=== PATIENT | male | born 1985 | race Two or more races ===

== ENCOUNTER 2025-04-06 14:20 | Inpatient (IN) | payer MEDICAID, SELFPAY ==
[2025-04-06] VITALS (9 sets, daily range): BP systolic 143–188; BP diastolic 97–118; PULSE 90–117; RESP 18–23; TEMP 36.7–37.2; O2SAT 89–99; BMI 29.0
--- NOTE | 2025-04-06 14:27 | XR_ITS ---
Examination: CT abdomen and pelvis without contrast. Coronal 3-D reconstructions. Sagittal 2-D reconstructions. Date and time of exam: 04/06/2025 at 2:53 p.m. CTDI: vol (mGy): 7.87 DLP: (mGycm): 416 INDICATION: Right-sided flank pain radiating down his lower back with nausea and vomiting for 2 days Technique: Axial images of the abdomen have been obtained, 3 mm slice thickness Intravenous contrast material has not been administered. Low dose protocols were performed. One or more of the following dose reduction techniques were used; automated exposure control, adjustment of the mA and/or KV according to patient size, use of iterative reconstruction technique. Findings: The lower lungs are clear. There is major very extensive fatty infiltration noted throughout the entire liver. Otherwise the liver appears unremarkable, the gallbladder and pancreas and spleen appear normal. Both adrenal glands appear all right, no abnormalities are seen in either right or left kidney. There are no calculi there is no evidence of obstructive uropathy on either side. The para-aortic region appears normal. The appendix is seen and appears normal small bowel loops appear all right. In the colon there is moderate diverticulosis in the proximal third of the sigmoid colon. There is a large amount of fecal material noted throughout the entire colon. There is calcification of the vas deferens on both sides IMPRESSION: 1. No abnormalities are seen involving either right or left kidney or ureter. 2 there is major, very extensive fatty infiltration throughout the entire liver. 3 there is moderate diverticulosis in the proximal third of the sigmoid colon 4. There is calcification of the vas deferens on both sides, this has a high correlation with the presence of diabetes.
[2025-04-06 14:54] LABS: Basophils # (Auto) 0.0 Thou/mm3 (0.0-0.2); Basophils % (Auto) 1 % (0-2.5); Eosinophils # (Auto) 0.1 Thou/mm3 (0.0-0.5); Eosinophils % (Auto) 4 % (0-10); Hematocrit 39.4 % (41.0-53.0); Hemoglobin 14.0 g/dL (13.5-16.0); Immature Granulocytes Auto 0.03 Thou/mm3 (0.00-0.00); Lymphocytes # (Auto) 0.8 Thou/mm3 (1.0-4.8); Lymphocytes % (Auto) 22 % (10-50); Mean Corpuscular HGB Conc 35.5 g/dl (31.0-37.0); Mean Corpuscular Hemoglobin 30.6 pg (25.0-35.0); Mean Corpuscular Volume 86 fL (80-100); Monocytes # (Auto) 0.2 Thou/mm3 (0.0-0.8); Monocytes % (Auto) 6 % (0-12); Neutrophils # (Auto) 2.4 Thou/mm3 (1.8-7.7); Neutrophils % (Auto) 66 % (37-80); Nucleated Red Blood Cell # 0.00 Thou/mm3 (0.00-0.00); Nucleated Red Blood Cell % 0 /100 WBC (0); Platelet Count 164 Thou/mm3 (140-440); RDW Standard Deviation 39.9 fL (35.1-43.9); Red Blood Count 4.58 Miln/mm3 (4.50-5.90); White Blood Count 3.6 Thou/mm3 (3.8-10.6)
[2025-04-06 15:13] LABS: INR 1.0 (0.9-1.3); Prothrombin Time 10.9 Seconds (9.0-12.2)
--- NOTE | 2025-04-06 15:24 | EKG_ITS ---
[facility] Test Date: 2025-04-06 Pat Name: KAVIN FUNEZ Department: Room: - Gender: Male [employer]: : 1985 Requested By: Gonzales Booker Order Number: [id number] Reading MD: Gonzales Booker Measurements Intervals [place] Rate: 106 P: 39 FL: 144 QRS: 22 QRSD: 98 T: -7 QT: 329 QTc: 438 Interpretive Statements SINUS TACHYCARDIA No previous ECG available for comparison /store/S0/[id number].pdf
[2025-04-06] MEDS: THIAMINE 100 MG TABLET PO (15:30)
[2025-04-06] MEDS: FOLIC ACID 1 MG TABLET PO (15:30)
[2025-04-06 15:31] LABS: Alanine Aminotransferase 88 U/L (10-49); Albumin, Serum 4.9 gm/dL (3.5-5.0); Albumin/Globulin Ratio 1.5 (1.2-2.2); Alcohol, Blood Medical 132.0 mg/dL (0-10.0); Alkaline Phosphatase 95 U/L (46-116); Anion Gap 17 (7-16); Aspartate Amino Transferase 172 U/L (0-34); BUN/Creatinine Ratio 6 Ratio (12-20); Bilirubin,Total 0.5 mg/dL (0.3-1.2); Blood Urea Nitrogen 5 mg/dL (9-23); Calcium 9.2 mg/dL (8.3-10.6); Calcium (Corrected) 9.2 mg/dL (8.5-10.1); Carbon Dioxide 28.5 mMol/L (20.0-31.0); Chloride 96 mMol/L (98-107); Creatinine (Component) 0.8 mg/dL (0.6-1.3); Estimated Creatinine Clearance 126.9 mL/min (>60); Globulin 3.2 gm/dL (2.3-3.5); Glucose 188 mg/dL (74-106); Lipase 59 U/L (12-53); Magnesium 1.1 mg/dL (1.6-2.6); Osmolality,Calculated 283 (275-295); Potassium 3.5 mMol/L (3.4-5.1); Sodium 141 mMol/L (136-145); Total Protein 8.1 gm/dL (5.7-8.2); eGFR > 60 See Note
[2025-04-06] MEDS: MORPHINE SULF INJ 4 MG/ML VIAL IVP (15:31)
[2025-04-06] MEDS: SODIUM CHLORIDE 0.9% 1000 ML 1,000 ML 999 ML IV (15:31)
[2025-04-06] MEDS: LORazepam 2 MG/ML VIAL IVP ×2 (15:32→18:57)
[2025-04-06] MEDS: ONDANSETRON INJ 2 MG/ML INJ 2 ML 4 MG IVP (15:32)
[2025-04-06 15:45] LABS: Troponin I 0.046 ng/mL (0.0-0.045)
[2025-04-06 15:58] LABS: Collection Type, Urine Clean Catch
[2025-04-06 16:05] LABS: Bilirubin,Urine Negative (Negative); Blood,Urine 2+ (Negative); Clarity,Urine Clear (Clear/Hazy); Color,Urine Yellow (Lt Yel-Yel); Glucose, Urine 2+ (Negative); Hyaline Casts,Urine < 1 /hpf (0-1); Ketones,Urine 1+ (Negative); Leukocyte Esterase,Urine Negative (Negative); Nitrite,Urine Negative (Negative); PH,Urine 8.0 (5.0-7.0); Protein,Urine 2+ (Neg - Trace); RBC,Urine 17 /hpf (0-3); Specific Gravity,Urine 1.023 (1.001-1.035); Squamous Epithelial Cell,Urine < 1 /hpf (0-5); Urobilinogen,Urine Negative mg/dL (0.0-1.0); WBC,Urine 1 /hpf (0-5)
[2025-04-06 16:10] LABS: Sperm,Urine Present
--- NOTE | 2025-04-06 17:13 | PD.EDABDPN ---
ED Abdominal Pain RME/HPI General Chief Complaint: Chest Pain Stated complaint: ABD PAIN Time seen by provider: 04/06/25 14:26 Arrival date/time: 04/06/25 14:20 Limitations: no limitations RME / HPI RME / HPI narrative: 39 year old male with history of alcoholism, alcohol withdrawal, hypertension, diabetes presents to the ED BIBA from clinic for evaluation of feeling unwell today. Patient states he drinks 1 pint of Vodka a day (sometimes more) and states 5-6 days ago drank 2 pints of Vodka and has not had anything to drink since. Today went to the clinic with complaint of feeling bad, pain all over . No other recreational drug use, no known past medical history of liver cirrhosis. Family history of diabetes and hypertension. Related Data Home Medications ?Medication ?Instructions ?Recorded ?Confirmed lisinopril 40 mg tablet 40 mg PO QDAY 04/07/25 04/07/25 metformin 850 mg tablet 850 mg PO QDAY 04/07/25 04/07/25 omeprazole 40 mg capsule,delayed 40 mg PO QDAY 04/07/25 04/07/25 release Previous Rx's ?Medication ?Instructions ?Recorded gabapentin 100 mg capsule 100 mg PO QDAY 4 days #4 caps 04/14/25 gabapentin 300 mg capsule 300 mg PO BID 4 days #8 caps 04/14/25 gabapentin 300 mg capsule 300 mg PO QDAY 4 days #4 caps 04/14/25 gabapentin 300 mg capsule 300 mg PO TID 4 days #12 caps 04/14/25 magnesium 200 mg tablet 200 mg PO QDAY 2 weeks #14 tabs 04/14/25 melatonin 3 mg tablet 6 mg (2 x 3 mg) PO HS 14 days #28 04/14/25 tabs sennosides 8.6 mg capsule (senna) 8.6 mg PO QDAY 1 month #30 caps 04/14/25 thiamine mononitrate (vit B1) 100 100 mg PO QDAY 30 days #30 tabs 04/14/25 mg tablet Allergies Allergy/AdvReac Type Severity Reaction Status Date / Time No Known Allergies Allergy Verified 04/06/25 14:46 Review of Systems Review of Systems Systems Reviewed: All systems reviewed, normal except as documented Past Medical History Past Medical History CARDIAC: Positive Hypertension GASTROINTESTINAL: Positive Gastroesophageal Reflux Disease ENDOCRINE: Positive Diabetes Mellitus Type 2 PSYCHO/SOCIAL: Positive Depression and Anxiety Social History SMOKING STATUS: Never smoker ED Exam General Limitations: Present no limitations General appearance: Present alert (oriented x3) and other (Slight tremor, fluent speech, pale, appears weak ) Head Head exam: Present atraumatic Eye Eye exam: Present normal appearance, PERRL and EOMI ENT ENT exam: Present normal exam, normal oropharynx and mucous membranes moist Neck Neck exam: Present normal inspection, full ROM and trachea midline Chest Chest inspection: Present normal inspection and symmetric chest wall rise Respiratory Respiratory exam: Present normal lung sounds bilaterally Cardiovascular Cardiovascular exam: Present regular rate, normal rhythm and normal heart sounds Abdominal Exam Abdominal exam: Present soft, tenderness (mild tenderness around umbilicus ) and normal bowel sounds; Absent guarding, rebound or rigidity Extremities Exam Extremities exam: Present normal inspection and full ROM Back Exam Back exam: Present normal inspection and full ROM Neurological Exam Neurological exam: Present alert, oriented X3, CN II-XII intact and other (Slight tremor noted) Psychiatric Psychiatric exam: Present normal affect and normal mood Skin Skin exam: Present warm, dry, intact and pallor Course Quality Measures none Orders Category Date Time Status Admit to Inpatient Status Routine Admission 04/06/25 21:11 Active Patient Condition Routine Admission 04/06/25 21:11 Ordered Bedrest NOW Care 04/06/25 21:14 Completed Bedside Blood Glucose ACHS Care 04/06/25 21:09 Completed Blood glucose [Bedside Blood Glucose] NOW Care 04/06/25 21:09 Completed Senior Network Architect Q4H START 00 Care 04/06/25 14:27 Completed Continuous Pulse Oximetry STAT Care 04/06/25 14:27 Completed EKG (ED ONLY) *Do not use* NOW Care 04/06/25 15:24 Completed Insert IV STAT Care 04/06/25 14:27 Completed NPO STAT Care 04/06/25 14:27 Completed Notify provider NEEDED Care 04/06/25 21:11 Completed Diet Regular Diet 04/07/[address] abdomen pelvis wo con Stat Exams 04/06/25 14:27 Completed EKG (ED Only) Stat Exams 04/06/25 15:24 Draft US gall bladder Stat Exams 04/06/25 18:40 Completed Alcohol, Blood Medical Stat Lab 04/06/25 14:40 Completed Ammonia Stat Lab 04/06/25 19:35 Completed Amylase Stat Lab 04/06/25 17:55 Completed BNP [B-Type Natriuretic Peptide] Stat Lab 04/06/25 17:55 Completed Beta Hydroxybutyrate Stat Lab 04/06/25 17:55 Completed Bilirubin,Direct Stat Lab 04/06/25 17:55 Completed CBC Stat Lab 04/06/25 14:40 Completed CK [Creatine Kinase] Stat Lab 04/06/25 17:55 Completed Comprehensive Metabolic Panel Stat Lab 04/06/25 14:40 Completed Drug Screen,Urine Stat Lab 04/06/25 15:50 Completed Hemoglobin A1C [Glycohemoglobin w (eAG)] Stat Lab 04/06/25 17:55 Completed Lactate (Lactic Acid) Stat Lab 04/06/25 19:35 Completed Lipase Stat Lab 04/06/25 14:40 Completed Magnesium Stat Lab 04/06/25 14:40 Completed Magnesium Stat Lab 04/06/25 17:55 Completed PTT [Partial Thromboplastin Time] Stat Lab 04/06/25 17:55 Completed Phosphorous Stat Lab 04/06/25 19:35 Completed Prothrombin Time with INR Stat Lab 04/06/25 14:40 Completed TSH [Thyroid Stimulating Hormone] Stat Lab 04/06/25 17:55 Completed Troponin I Stat Lab 04/06/25 14:40 Completed Troponin I Stat Lab 04/06/25 17:55 Completed Urinalysis Stat Lab 04/06/25 15:50 Completed VBG [Venous Blood Gas] Stat Lab 04/06/25 19:35 Completed Dextrose 50% Syr [D50w Syringe Abboject] Med 04/06/25 21:09 Discontinued 25 ml IV Q15MIN PRN Dextrose 50% Syr [D50w Syringe Abboject] Med 04/06/25 21:09 Discontinued 50 ml IV Q15MIN PRN Folic Acid Med 04/07/25 09:00 Discontinued 1 mg PO QDAY Folic Acid Med 04/06/25 14:34 Discontinued 1 mg PO X1 ONE Glucagon Inj Med 04/06/25 21:09 Discontinued 1 mg IM Q15MIN PRN INSULIN LISPRO (AdmeLOG) [HumaLOG] Med 04/07/25 07:30 Discontinued See Protocol SC AC LORazepam [Ativan Inj] Med 04/06/25 14:36 Discontinued 2 mg IVP X1 ONE LORazepam [Ativan Inj] Med 04/06/25 18:49 Discontinued 2 mg IVP X1 ONE Lisinopril [Prinivil] Med 04/06/25 17:58 Discontinued 20 mg PO X1 ONE Magnesium Sulfate 4 GM Ivpb [Magnesium Sulfate Ivpb] Med 04/06/25 18:48 Discontinued 4 gm in 50 ml IV X1 Metoprolol Tartrate Inj [Lopressor Inj] Med 04/06/25 18:32 Discontinued 2.5 mg IVP X1 ONE Metoprolol Tartrate [Lopressor] Med 04/06/25 18:32 Discontinued 50 mg PO X1 ONE Milk Of Magnesia Susp [Mom Susp] Med 04/06/25 21:16 Discontinued 30 ml PO X1 ONE Morphine* Inj Med 04/06/25 18:32 Discontinued 4 mg IV X1 ONE Morphine* Inj Med 04/06/25 14:27 Discontinued 4 mg IVP X1 ONE Ondansetron Inj [Zofran Inj] Med 04/06/25 14:28 Discontinued 4 mg IVP X1 ONE Ringers Lactated 1000 ml [Lactated Ringers] 1,000 ml Med 04/06/25 18:37 Discontinued IV 1,000 mls/hr Ringers Lactated 1000 ml [Lactated Ringers] 1,000 ml Med 04/06/25 21:15 Discontinued IV 75 mls/hr Sodium Chloride 0.9% 1000 ml [Ns] 1,000 ml Med 04/06/25 14:27 Discontinued IV 999 mls/hr Thiamine Inj [Vitamin B-1 Inj] Med 04/06/25 21:08 Discontinued 500 mg IVP X1 ONE Thiamine [Vitamin B-1] Med 04/07/25 09:00 Discontinued 100 mg PO QDAY Thiamine [Vitamin B-1] Med 04/06/25 14:34 Discontinued 100 mg PO X1 ONE Code Status Routine Oth 04/06/25 21:10 Completed Oxygen Delivery PRN RT 04/06/25 21:15 Completed Vital Signs Vital signs: Vital Signs Temperature 98.5 F 04/06/25 15:06 Pulse Rate 108 H 04/06/25 15:06 Respiratory Rate 19 04/06/25 15:06 Blood Pressure 188/118 H 04/06/25 15:06 Pulse Oximetry (%) 99 04/06/25 15:06 Oxygen Delivery Method Room Air 04/06/25 15:06 Pulse ox is 99% on room air which is adequate. Abdominal Pain MDM MDM Narrative MDM Narrative:: Mary Baca am scribing for and in the presence of Dr. Nassar. 1800p: Care signed out to Dr. Lund pending delta trop and final disposition. Patient data External records reviewed:: [facility] previous records and EMS form Clinical information provided by:: patient and EMS Social determinants that could affect healthcare access:: none Patient has the following chronic illnesses:: alcoholism, alcohol withdrawal, hypertension, diabetes How is presenting disease/condition affected by chronic disease/condition?: exacerbated by Evaluation data The following diagnostics were reviewed and interpreted by me:: lab results, radiology exam(s) and EKG tracing(s) (EKG @ 15:52h, interpreted by me, sinus tachycardia, rate 106, no STEMI. ) Lab and/or radiology exams considered but not ordered:: None Interpretation Summary: Ordering Physician: Gonzales Nassar MD Date of Service: 04/06/25 Procedure(s): CT abdomen pelvis wo con Accession Number(s): [id number] cc: Gonzales Nassar MD; Donta Samuel MD~ Examination: CT abdomen and pelvis without contrast. Coronal 3-D reconstructions. Sagittal 2-D reconstructions. Date and time of exam: 04/06/2025 at 2:53 p.m. CTDI: vol (mGy): 7.87 DLP: (mGycm): 416 INDICATION: Right-sided flank pain radiating down his lower back with nausea and vomiting for 2 days Technique: Axial images of the abdomen have been obtained, 3 mm slice thickness Intravenous contrast material has not been administered. Low dose protocols were performed. One or more of the following dose reduction techniques were used; automated exposure control, adjustment of the mA and/or KV according to patient size, use of iterative reconstruction technique. Findings: The lower lungs are clear. There is major very extensive fatty infiltration noted throughout the entire liver. Otherwise the liver appears unremarkable, the gallbladder and pancreas and spleen appear normal. Both adrenal glands appear all right, no abnormalities are seen in either right or left kidney. There are no calculi there is no evidence of obstructive uropathy on either side. The para-aortic region appears normal. The appendix is seen and appears normal small bowel loops appear all right. In the colon there is moderate diverticulosis in the proximal third of the sigmoid colon. There is a large amount of fecal material noted throughout the entire colon. There is calcification of the vas deferens on both sides IMPRESSION: 1. No abnormalities are seen involving either right or left kidney or ureter. 2 there is major, very extensive fatty infiltration throughout the entire liver. 3 there is moderate diverticulosis in the proximal third of the sigmoid colon 4. There is calcification of the vas deferens on both sides, this has a high correlation with the presence of diabetes. Dictated By: Donta Samuel MD Signed By: <Electronically signed by Donta Samuel MD in [place]> 04/06/25 1554 Medications / Prescriptions Medications or Prescriptions considered but not ordered:: None Medication administrations:: Medication Administration History Discontinued Medications Acetaminophen (Acetaminophen 325 Mg Tablet) 650 mg PO Q6HR PRN PRN Reason: Fever > 100.4 or pain Stop: 05/07/25 19:43 Last Admin: 04/11/25 09:02 Dose: 650 mg Documented By: Admin: 04/08/25 19:04 Dose: 650 mg Documented By: Admin: 04/07/25 19:59 Dose: 650 mg Documented By: NATALIE Acetaminophen (Acetaminophen 325 Mg Tablet) 650 mg PO X1 ONE Stop: 04/08/25 03:20 Last Admin: 04/08/25 03:33 Dose: 650 mg Documented By: NATALIE Acetaminophen (Acetaminophen 325 Mg Tablet) 650 mg PO Q6HR PRN PRN Reason: Fever > 100.4 or pain 1-3 Stop: 05/07/25 19:43 Chlordiazepoxide HCl (Chlordiazepoxide Hcl 25 Mg Capsule) 25 mg PO BID JIM Stop: 04/13/25 20:59 Last Admin: 04/09/25 08:10 Dose: 25 mg Documented By: Admin: 04/08/25 20:52 Dose: 25 mg Documented By: NATALIE Chlordiazepoxide HCl (Chlordiazepoxide Hcl 25 Mg Capsule) 25 mg PO TID JIM Stop: 04/14/25 13:59 Last Admin: 04/09/25 14:19 Dose: Not Given Documented By: WILL Non-Admin Reason: Discontinued Chlordiazepoxide HCl (Chlordiazepoxide Hcl 25 Mg Capsule) 25 mg PO BID JIM Stop: 04/14/25 14:14 Last Admin: 04/12/25 20:22 Dose: 25 mg Documented By: Admin: 04/12/25 09:10 Dose: 25 mg Documented By: Admin: 04/11/25 20:36 Dose: 25 mg Documented By: Admin: 04/11/25 08:57 Dose: 25 mg Documented By: Admin: 04/10/25 20:01 Dose: 25 mg Documented By: Admin: 04/10/25 08:57 Dose: 25 mg Documented By: Admin: 04/09/25 20:14 Dose: 25 mg Documented By: Admin: 04/09/25 14:20 Dose: 25 mg Documented By: WILL Chlordiazepoxide HCl (Chlordiazepoxide Hcl 25 Mg Capsule) 25 mg PO BID JIM Stop: 04/18/25 08:59 Dextrose (Dextrose 50%-Water Inj 50 Ml Syringe) 25 ml IV Q15MIN PRN PRN Reason: BG 50-70 responsive npo pt Stop: 05/06/25 21:08 Dextrose (Dextrose 50%-Water Inj 50 Ml Syringe) 50 ml IV Q15MIN PRN PRN Reason: BG <50 OR BG <70 & pt unresponsive Stop: 05/06/25 21:08 Diazepam (Diazepam Inj 5 Mg/Ml Vial 2 Ml) 10 mg IVP Q2HR PRN PRN Reason: CIWA SCORE Stop: 04/11/25 21:16 Diazepam (Diazepam Inj 5 Mg/Ml Vial 2 Ml) 10 mg IVP X1 PRN PRN Reason: Breakthrough Agitation Diazepam (Diazepam Inj 5 Mg/Ml Vial 2 Ml) 5 mg IVP X1 PRN PRN Reason: Breakthrough Agitation Last Admin: 04/11/25 15:57 Dose: 5 mg Documented By: LEO Diazepam (Diazepam Inj 5 Mg/Ml Vial 2 Ml) 5 mg IVP Q2HR PRN PRN Reason: CIWA SCORE 15-19 Stop: 04/11/25 21:16 Last Admin: 04/10/25 03:53 Dose: 5 mg Documented By: SHAWN Comments: CIWA score: 16 Admin: 04/08/25 20:10 Dose: 5 mg Documented By: NATALIE Diazepam (Diazepam Inj 5 Mg/Ml Vial 2 Ml) 5 mg IVP Q2HR PRN PRN Reason: CIWA SCORE 16-19 Stop: 04/11/25 21:16 Last Admin: 04/10/25 20:01 Dose: 5 mg Documented By: SHAWN Comments: ZENAIDAWA 16. Diazepam (Diazepam Inj 5 Mg/Ml Vial 2 Ml) 5 mg IVP X1 PRN PRN Reason: Breakthrough Agitation Diazepam (Diazepam Inj 5 Mg/Ml Vial 2 Ml) 2.5 mg IVP X1 PRN PRN Reason: Breakthrough Agitation Last Admin: 04/13/25 07:45 Dose: 2.5 mg Documented By: WILL Comments: Ok to give per MD TRISTON Moore Diphenhydramine HCl (Diphenhydramine Elix 25 Mg/10 Ml Udc) 12.5 mg PO X1 ONE Stop: 04/13/25 01:27 Last Admin: 04/13/25 01:44 Dose: 12.5 mg Documented By: NATALIE Enoxaparin Sodium (Enoxaparin Sod Inj 40 Mg/0.4 Ml Syringe) 40 mg SC QDAY COUNT INCLUDES THE [facility] Stop: 04/21/25 08:59 Last Admin: 04/14/25 09:37 Dose: 40 mg Documented By: Admin: 04/13/25 08:48 Dose: 40 mg Documented By: Admin: 04/12/25 09:11 Dose: 40 mg Documented By: Admin: 04/11/25 08:58 Dose: 40 mg Documented By: Admin: 04/10/25 08:56 Dose: 40 mg Documented By: Admin: 04/09/25 08:10 Dose: 40 mg Documented By: Admin: 04/08/25 08:26 Dose: 40 mg Documented By: Admin: 04/07/25 09:09 Dose: 40 mg Documented By: LEO Folic Acid (Folic Acid 1 Mg Tablet) 1 mg PO X1 ONE Stop: 04/06/25 14:35 Last Admin: 04/06/25 15:30 Dose: 1 mg Documented By: ARGENTINA Folic Acid (Folic Acid 1 Mg Tablet) 1 mg PO QDAY JIM Stop: 05/07/25 08:59 Last Admin: 04/13/25 08:49 Dose: 1 mg Documented By: Admin: 04/12/25 09:10 Dose: 1 mg Documented By: Admin: 04/11/25 08:57 Dose: 1 mg Documented By: Admin: 04/10/25 08:57 Dose: 1 mg Documented By: Admin: 04/09/25 08:10 Dose: 1 mg Documented By: Admin: 04/08/25 08:26 Dose: 1 mg Documented By: Admin: 04/07/25 09:09 Dose: 1 mg Documented By: LEO Folic Acid (Folic Acid Inj 1 Mg/0.2 Ml) 1 mg IVP QDAY COUNT INCLUDES THE [facility] Stop: 05/13/25 16:14 Last Admin: 04/14/25 10:37 Dose: 1 mg Documented By: Admin: 04/13/25 17:14 Dose: 1 mg Documented By: WILL Gabapentin (Gabapentin 300 Mg Capsule) 300 mg PO TID COUNT INCLUDES THE [facility] Stop: 05/13/25 08:44 Last Admin: 04/14/25 05:26 Dose: 300 mg Documented By: Admin: 04/13/25 21:49 Dose: 300 mg Documented By: Admin: 04/13/25 14:06 Dose: 300 mg Documented By: Admin: 04/13/25 08:48 Dose: 300 mg Documented By: WILL Glucagon (Glucagon Inj 1 Mg Vial) 1 mg IM Q15MIN PRN PRN Reason: BG <70, and no IV access Hydralazine HCl (Hydralazine Inj 20 Mg/Ml Vial) 10 mg IVP X1 ONE Stop: 04/07/25 23:04 Last Admin: 04/07/25 23:22 Dose: 10 mg Documented By: NATALIE Hydralazine HCl (Hydralazine Inj 20 Mg/Ml Vial) 10 mg IVP X1 ONE Stop: 04/13/25 23:58 Last Admin: 04/14/25 00:08 Dose: 10 mg Documented By: Hydromorphone HCl (Hydromorphone Inj 2 Mg/Ml Vial) 0.5 mg IVP Q4HR PRN PRN Reason: Breakthrough Pain 9-10 Stop: 04/14/25 11:45 Last Admin: 04/12/25 00:25 Dose: 0.5 mg Documented By: BLAINE Sodium Chloride (Ns) 1,000 mls @ 999 mls/hr IV .Q1H1M ONE Stop: 04/06/25 15:27 Last Infusion: 04/06/25 16:39 Dose: Infused Documented By: Admin: 04/06/25 15:31 Dose: 999 mls/hr Documented By: BD Lactated Ringer's (Lactated Ringers) 1,000 mls @ 1,000 mls/hr IV .Q1H ONE Stop: 04/06/25 19:36 Last Infusion: 04/06/25 20:26 Dose: Infused Documented By: Admin: 04/06/25 18:57 Dose: 1,000 mls/hr Documented By: BD Magnesium Sulfate (Magnesium Sulfate Ivpb) 4 gm in 50 mls @ 12.5 mls/hr IV X1 ONE Stop: 04/06/25 22:47 Last Infusion: 04/06/25 23:00 Dose: Infused Documented By: Admin: 04/06/25 18:56 Dose: 12.5 mls/hr Documented By: BD Lactated Ringer's (Lactated Ringers) 1,000 mls @ 75 mls/hr IV .[id number] JIM Stop: 05/06/25 21:14 Last Admin: 04/12/25 04:06 Dose: 75 mls/hr Documented By: Infusion: 04/11/25 22:17 Dose: Infused Documented By: Infusion: 04/11/25 18:03 Dose: 75 mls/hr Documented By: Admin: 04/11/25 08:57 Dose: 75 mls/hr Documented By: Infusion: 04/11/25 07:10 Dose: Infused Documented By: Admin: 04/10/25 17:50 Dose: 75 mls/hr Documented By: Infusion: 04/10/25 17:38 Dose: Infused Documented By: Admin: 04/10/25 04:18 Dose: 75 mls/hr Documented By: Infusion: 04/09/25 21:30 Dose: Infused Documented By: Admin: 04/09/25 08:10 Dose: 75 mls/hr Documented By: Infusion: 04/09/25 08:00 Dose: Infused Documented By: Admin: 04/08/25 18:40 Dose: 75 mls/hr Documented By: Infusion: 04/08/25 14:15 Dose: Infused Documented By: Admin: 04/08/25 00:55 Dose: 75 mls/hr Documented By: Infusion: 04/08/25 00:55 Dose: Infused Documented By: Admin: 04/07/25 11:35 Dose: 75 mls/hr Documented By: Infusion: 04/07/25 11:25 Dose: Infused Documented By: Admin: 04/06/25 22:05 Dose: 75 mls/hr Documented By: DELIA Magnesium Sulfate (Magnesium Sulfate Ivpb) 4 gm in 50 mls @ 12.5 mls/hr IV X1 ONE Stop: 04/07/25 01:18 Last Admin: 04/06/25 22:58 Dose: 12.5 mls/hr Documented By: DELIA Potassium Chloride (Kcl Ivpb) 10 meq in 100 mls @ 100 mls/hr IV Q1H JIM Stop: 04/07/25 11:18 Last Admin: 04/07/25 11:34 Dose: 100 mls/hr Documented By: Infusion: 04/07/25 10:57 Dose: Infused Documented By: Admin: 04/07/25 09:57 Dose: 100 mls/hr Documented By: LEO Magnesium Sulfate (Magnesium Sulfate Ivpb) 4 gm in 50 mls @ 12.5 mls/hr IV X1 ONE Stop: 04/08/25 13:19 Last Admin: 04/08/25 09:42 Dose: 12.5 mls/hr Documented By: LEO Magnesium Sulfate (Magnesium Sulfate Ivpb) 4 gm in 50 mls @ 12.5 mls/hr IV X1 ONE Stop: 04/09/25 12:59 Last Infusion: 04/09/25 12:15 Dose: Infused Documented By: Admin: 04/09/25 09:43 Dose: 12.5 mls/hr Documented By: WILL Magnesium Sulfate (Magnesium Sulfate Ivpb) 4 gm in 50 mls @ 12.5 mls/hr IV X1 ONE Stop: 04/09/25 16:29 Last Admin: 04/09/25 12:14 Dose: 12.5 mls/hr Documented By: WILL Magnesium Sulfate (Magnesium Sulfate Ivpb) 4 gm in 50 mls @ 12.5 mls/hr IV X1 ONE Stop: 04/11/25 13:00 Last Admin: 04/11/25 10:54 Dose: 12.5 mls/hr Documented By: LEO Magnesium Sulfate (Magnesium Sulfate Ivpb) 4 gm in 50 mls @ 12.5 mls/hr IV X1 ONE Stop: 04/12/25 15:16 Last Admin: 04/12/25 12:31 Dose: 12.5 mls/hr Documented By: LEO Magnesium Sulfate (Magnesium Sulfate Ivpb) 4 gm in 50 mls @ 12.5 mls/hr IV X1 ONE Stop: 04/12/25 19:19 Last Admin: 04/12/25 17:10 Dose: 12.5 mls/hr Documented By: LEO Thiamine HCl 500 mg/ Sodium (Chloride) 105 mls @ 210 mls/hr IV TID JIM Stop: 04/20/25 07:59 Last Admin: 04/14/25 05:26 Dose: 210 mls/hr Documented By: Infusion: 04/13/25 22:19 Dose: Infused Documented By: Admin: 04/13/25 21:49 Dose: 210 mls/hr Documented By: Infusion: 04/13/25 14:36 Dose: Infused Documented By: Admin: 04/13/25 14:06 Dose: 210 mls/hr Documented By: Infusion: 04/13/25 09:18 Dose: Infused Documented By: Admin: 04/13/25 08:48 Dose: 210 mls/hr Documented By: WILL Magnesium Sulfate (Magnesium Sulfate Ivpb) 4 gm in 50 mls @ 12.5 mls/hr IV X1 ONE Stop: 04/13/25 12:23 Last Admin: 04/13/25 08:47 Dose: 12.5 mls/hr Documented By: WILL Insulin Degludec (Insulin Degludec 5 Unit/0.05 Ml (Per 5 Units)) 8 unit SC QDAY COUNT INCLUDES THE [facility] Stop: 05/12/25 08:59 Last Admin: 04/14/25 09:38 Dose: 8 unit Documented By: WILL Co-signed By: PP Admin: 04/13/25 08:49 Dose: 8 unit Documented By: WILL Co-signed By: AMENA Admin: 04/12/25 09:11 Dose: 8 unit Documented By: LEO Co-signed By: ERIN Insulin Human Lispro (Insulin Lispro (Admelog) 1 Unit/0.01 Ml Unit) 0 unit SC AC COUNT INCLUDES THE [facility]; Protocol Stop: 05/07/25 07:29 Last Admin: 04/09/25 16:40 Dose: Not Given Documented By: WILL Non-Admin Reason: Per Protocol Admin: 04/09/25 11:12 Dose: Not Given Documented By: WILL Non-Admin Reason: Per Protocol Admin: 04/09/25 07:21 Dose: Not Given Documented By: WILL Non-Admin Reason: Per Protocol Admin: 04/08/25 18:06 Dose: Not Given Documented By: LEO Non-Admin Reason: Per Protocol Admin: 04/08/25 18:06 Dose: Not Given Documented By: LEO Non-Admin Reason: Per Protocol Admin: 04/08/25 18:06 Dose: Not Given Documented By: LH Non-Admin Reason: Per Protocol Admin: 04/07/25 18:03 Dose: Not Given Documented By: LH Non-Admin Reason: Per Protocol Admin: 04/07/25 14:43 Dose: Not Given Documented By: LH Non-Admin Reason: Per Protocol Admin: 04/07/25 08:03 Dose: Not Given Documented By: LH Non-Admin Reason: Per Protocol Insulin Human Lispro (Insulin Lispro (Admelog) 1 Unit/0.01 Ml Unit) 0 unit SC [facility] COUNT INCLUDES THE [facility]; Protocol Stop: 05/09/25 20:29 Last Admin: 04/09/25 20:36 Dose: 1 unit Documented By: SHAWN Co-signed By: XIANG Insulin Human Lispro (Insulin Lispro (Admelog) 1 Unit/0.01 Ml Unit) 0 unit SC [facility] COUNT INCLUDES THE [facility]; Protocol Stop: 05/10/25 16:59 Last Admin: 04/10/25 20:07 Dose: 1 unit Documented By: SHAWN Co-signed By: RAYMOND Admin: 04/10/25 17:30 Dose: Not Given Documented By: Non-Admin Reason: Per Protocol Insulin Human Lispro (Insulin Lispro (Admelog) 1 Unit/0.01 Ml Unit) 0 unit SC [facility] COUNT INCLUDES THE [facility]; Protocol Stop: 05/10/25 16:59 Last Admin: 04/14/25 07:43 Dose: Not Given Documented By: WILL Non-Admin Reason: Per Protocol Admin: 04/13/25 20:59 Dose: 4 unit Documented By: Co-signed By: CAROLIN Admin: 04/13/25 17:14 Dose: 3 unit Documented By: WILL Co-signed By: ANSLEY Admin: 04/13/25 11:10 Dose: Not Given Documented By: WILL Non-Admin Reason: Per Protocol Admin: 04/13/25 07:25 Dose: 2 unit Documented By: WILL Co-signed By: AMENA Admin: 04/12/25 20:21 Dose: 4 unit Documented By: NEHEMIAS Co-signed By: Admin: 04/12/25 18:06 Dose: 3 unit Documented By: LEO Co-signed By: ERIN Admin: 04/12/25 15:31 Dose: Not Given Documented By: LH Non-Admin Reason: Wrong Time Admin: 04/12/25 12:32 Dose: 3 unit Documented By: LEO Co-signed By: ERIN Admin: 04/11/25 20:35 Dose: 4 unit Documented By: BLAINE Co-signed By: [email or web address] Admin: 04/11/25 17:49 Dose: 3 unit Documented By: LEO Co-signed By: ERIN Admin: 04/11/25 12:33 Dose: 3 unit Documented By: LEO Co-signed By: MIGUEL A Ketorolac Tromethamine (Ketorolac Inj 30 Mg/Ml Vial) 30 mg IVP X1 PRN PRN Reason: PAIN SCALE 4-10(Mod-Sev Stop: 04/17/25 15:16 Last Admin: 04/12/25 18:05 Dose: 30 mg Documented By: LEO Labetalol HCl (Labetalol Inj 5 Mg/Ml Vial 4 Ml) 10 mg IVP Q2HR PRN PRN Reason: SBP>180 or DBP>100 Stop: 05/07/25 07:59 Lactulose (Lactulose Syrup 20 Gm/30 Ml Udc) 20 gm PO X1 ONE; Protocol Stop: 04/12/25 11:28 Last Admin: 04/12/25 12:31 Dose: 20 gm Documented By: LEO Lactulose (Lactulose Syrup 20 Gm/30 Ml Udc) 40 gm PO X1 ONE; Protocol Stop: 04/14/25 10:49 Last Admin: 04/14/25 11:15 Dose: Not Given Documented By: WILL Non-Admin Reason: Patient Refused Lisinopril (Lisinopril 20 Mg Tablet) 20 mg PO X1 ONE Stop: 04/06/25 17:59 Last Admin: 04/06/25 18:11 Dose: 20 mg Documented By: ARGENTINA Lisinopril (Lisinopril 20 Mg Tablet) 40 mg PO QDAY COUNT INCLUDES THE [facility] Stop: 05/09/25 11:44 Last Admin: 04/14/25 09:37 Dose: 40 mg Documented By: Admin: 04/13/25 08:48 Dose: 40 mg Documented By: Admin: 04/12/25 09:10 Dose: 40 mg Documented By: Admin: 04/11/25 08:57 Dose: 40 mg Documented By: Admin: 04/10/25 08:57 Dose: 40 mg Documented By: Admin: 04/09/25 12:13 Dose: 40 mg Documented By: WILL Lorazepam (Lorazepam 2 Mg/Ml Vial) 2 mg IVP X1 ONE Stop: 04/06/25 14:37 Last Admin: 04/06/25 15:32 Dose: 2 mg Documented By: BD Lorazepam (Lorazepam 2 Mg/Ml Vial) 2 mg IVP X1 ONE Stop: 04/06/25 18:50 Last Admin: 04/06/25 18:57 Dose: 2 mg Documented By: BD Lorazepam (Lorazepam 0.5 Mg Tablet) 1 mg PO Q4HR PRN PRN Reason: CIWA SCORE 6-9 Stop: 04/11/25 21:16 Last Admin: 04/10/25 08:56 Dose: 1 mg Documented By: Admin: 04/09/25 16:24 Dose: 1 mg Documented By: WILL Comments: TRISTON 11 Admin: 04/09/25 12:12 Dose: 1 mg Documented By: WILL Comments: TRISTON 11 Admin: 04/09/25 03:36 Dose: 1 mg Documented By: Admin: 04/08/25 18:40 Dose: 1 mg Documented By: Admin: 04/08/25 08:29 Dose: 1 mg Documented By: Admin: 04/08/25 03:33 Dose: 1 mg Documented By: Admin: 04/07/25 05:13 Dose: 1 mg Documented By: Admin: 04/06/25 22:04 Dose: 1 mg Documented By: DELIA Lorazepam (Lorazepam 0.5 Mg Tablet) 2 mg PO Q4HR PRN PRN Reason: CIWA SCORE 10-14 Stop: 04/11/25 21:16 Lorazepam (Lorazepam 0.5 Mg Tablet) 2 mg PO Q4HR PRN PRN Reason: CIWA SCORE 12-15 Stop: 04/11/25 21:16 Last Admin: 04/10/25 15:58 Dose: 2 mg Documented By: Admin: 04/09/25 23:44 Dose: 2 mg Documented By: SHAWN Comments: TRISTON 12. Admin: 04/09/25 20:13 Dose: 2 mg Documented By: Admin: 04/09/25 08:10 Dose: 2 mg Documented By: WILL Comments: TRISTON 13 Admin: 04/07/25 19:40 Dose: 2 mg Documented By: NATALIE Lorazepam (Lorazepam 0.5 Mg Tablet) 1 mg PO Q4HR PRN PRN Reason: CIWA SCORE 6-11 Stop: 04/11/25 21:16 Last Admin: 04/11/25 15:06 Dose: 1 mg Documented By: Admin: 04/11/25 09:02 Dose: 1 mg Documented By: Admin: 04/11/25 04:55 Dose: 1 mg Documented By: SHAWN Comments: TRISTON 5. Lorazepam (Lorazepam 0.5 Mg Tablet) 0.5 mg PO Q4HR PRN PRN Reason: CIWA Score 2-6 Stop: 04/16/25 21:42 Last Admin: 04/12/25 04:12 Dose: 0.5 mg Documented By: BLAINE Comments: ZENAIDAWA Score=6 Lorazepam (Lorazepam 0.5 Mg Tablet) 1 mg PO Q4HR PRN PRN Reason: CIWA SCORE 7-11 Stop: 04/16/25 21:42 Last Admin: 04/11/25 22:08 Dose: 1 mg Documented By: BLAINE Comments: TRISTON Score-10 Lorazepam (Lorazepam 0.5 Mg Tablet) 2 mg PO Q4HR PRN PRN Reason: CIWA SCORE 12-15 Stop: 04/16/25 21:42 Lorazepam (Lorazepam 0.5 Mg Tablet) 0.25 mg PO Q4HR PRN PRN Reason: CIWA Score 2-6 Stop: 04/16/25 21:42 Last Admin: 04/13/25 00:07 Dose: 0.25 mg Documented By: BLAINE Lorazepam (Lorazepam 0.5 Mg Tablet) 0.5 mg PO Q4HR PRN PRN Reason: CIWA SCORE 7-11 Stop: 04/16/25 21:42 Last Admin: 04/14/25 09:37 Dose: 0.5 mg Documented By: Admin: 04/14/25 05:44 Dose: 0.5 mg Documented By: Comments: ZENAIDAWA score 7 Admin: 04/13/25 16:08 Dose: 0.5 mg Documented By: WILL Lorazepam (Lorazepam 0.5 Mg Tablet) 1 mg PO Q4HR PRN PRN Reason: CIWA SCORE 12-15 Stop: 04/16/25 21:42 Last Admin: 04/13/25 20:53 Dose: 1 mg Documented By: Comments: ZENAIDAWA score 15 Admin: 04/13/25 07:46 Dose: 1 mg Documented By: WILL Comments: OK to given per MD GOLDSTEIN 19 Admin: 04/13/25 04:40 Dose: 1 mg Documented By: Admin: 04/12/25 18:05 Dose: 1 mg Documented By: Admin: 04/12/25 14:06 Dose: 1 mg Documented By: LEO Lorazepam (Lorazepam 0.5 Mg Tablet) 2 mg PO Q6H JIM Stop: 04/18/25 07:59 Last Admin: 04/13/25 08:35 Dose: Not Given Documented By: WILL Non-Admin Reason: Discontinued Magnesium Hydroxide (Milk Of Magnesia Susp 30 Ml Udc) 30 ml PO X1 ONE; Protocol Stop: 04/06/25 21:17 Last Admin: 04/06/25 22:04 Dose: 30 ml Documented By: DELIA Magnesium Oxide (Magnesium Oxide 400 Mg Tablet) 400 mg PO X1 ONE Stop: 04/12/25 09:15 Last Admin: 04/12/25 12:31 Dose: 400 mg Documented By: LEO Magnesium Oxide (Magnesium Oxide 400 Mg Tablet) 400 mg PO X1 ONE Stop: 04/13/25 08:14 Last Admin: 04/13/25 08:48 Dose: 400 mg Documented By: WILL Melatonin (Melatonin 3 Mg Tablet) 6 mg PO HS JIM Stop: 05/08/25 20:59 Last Admin: 04/13/25 21:49 Dose: 6 mg Documented By: Admin: 04/12/25 20:22 Dose: 6 mg Documented By: Admin: 04/11/25 20:36 Dose: 6 mg Documented By: Admin: 04/10/25 20:01 Dose: 6 mg Documented By: Admin: 04/09/25 20:14 Dose: 6 mg Documented By: Admin: 04/08/25 20:52 Dose: 6 mg Documented By: NATALIE Melatonin (Melatonin 3 Mg Tablet) 6 mg PO X1 ONE Stop: 04/08/25 03:33 Last Admin: 04/08/25 03:37 Dose: 6 mg Documented By: NATALIE Metoprolol Tartrate (Metoprolol Tartrate Inj 1 Mg/Ml Vial 5 Ml) 2.5 mg IVP X1 ONE Stop: 04/06/25 18:33 Last Admin: 04/06/25 18:56 Dose: 2.5 mg Documented By: [place] Comments: Metoprolol Tartrate (Metoprolol Tartrate 25 Mg Tablet) 50 mg PO X1 ONE Stop: 04/06/25 18:33 Last Admin: 04/06/25 18:56 Dose: 50 mg Documented By: BD Morphine Sulfate (Morphine Sulf Inj 4 Mg/Ml Vial) 4 mg IVP X1 ONE Stop: 04/06/25 14:28 Last Admin: 04/06/25 15:31 Dose: 4 mg Documented By: BD Morphine Sulfate (Morphine Sulf Inj 4 Mg/Ml Vial) 4 mg IV X1 ONE Stop: 04/06/25 18:33 Last Admin: 04/06/25 18:58 Dose: Not Given Documented By: BD Non-Admin Reason: Cancelled by Provider Ondansetron HCl (Ondansetron Inj 2 Mg/Ml Inj 2 Ml) 4 mg IVP X1 ONE Stop: 04/06/25 14:29 Last Admin: 04/06/25 15:32 Dose: 4 mg Documented By: BD Ondansetron HCl (Ondansetron Inj 2 Mg/Ml Inj 2 Ml) 4 mg IVP Q6HR PRN; Protocol PRN Reason: NAUSEA OR VOMITING Stop: 05/07/25 19:44 Last Admin: 04/14/25 11:12 Dose: 4 mg Documented By: Admin: 04/14/25 05:37 Dose: 4 mg Documented By: Admin: 04/13/25 20:53 Dose: 4 mg Documented By: Admin: 04/13/25 04:32 Dose: 4 mg Documented By: Admin: 04/11/25 15:06 Dose: 4 mg Documented By: Admin: 04/11/25 04:58 Dose: 4 mg Documented By: Admin: 04/10/25 15:58 Dose: 4 mg Documented By: Admin: 04/09/25 23:46 Dose: 4 mg Documented By: Admin: 04/08/25 19:05 Dose: 4 mg Documented By: Admin: 04/08/25 03:41 Dose: 4 mg Documented By: Admin: 04/07/25 20:00 Dose: 4 mg Documented By: NATALIE Pantoprazole Sodium (Pantoprazole Inj 40 Mg Vial) 40 mg IVP X1 ONE Stop: 04/12/25 04:51 Last Admin: 04/12/25 05:08 Dose: 40 mg Documented By: BLAINE Polyethylene Glycol (Polyethylene Glycol 17 Gm Packet) 17 gm PO X1 ONE Stop: 04/14/25 10:49 Last Admin: 04/14/25 11:12 Dose: 17 gm Documented By: WILL Potassium Chloride (Potassium Chloride 20 Meq Tabcr) 40 meq PO X1 ONE Stop: 04/08/25 09:21 Last Admin: 04/08/25 09:42 Dose: 40 meq Documented By: LEO Potassium Chloride (Potassium Chloride 20 Meq Tabcr) 40 meq PO X1 ONE Stop: 04/08/25 11:46 Last Admin: 04/08/25 12:46 Dose: 40 meq Documented By: LEO Potassium Chloride (Potassium Chloride 20 Meq Tabcr) 40 meq PO X1 ONE Stop: 04/09/25 09:02 Last Admin: 04/09/25 09:44 Dose: 40 meq Documented By: WILL Sennosides (Senna Tablet) 1 tab PO QDAY PRN; Protocol PRN Reason: constipation Stop: 05/06/25 21:15 Last Admin: 04/10/25 22:05 Dose: 1 tab Documented By: SHAWN Sennosides (Senna Tablet) 1 tab PO QDAY JIM; Protocol Stop: 05/12/25 11:29 Last Admin: 04/14/25 09:38 Dose: Not Given Documented By: WILL Non-Admin Reason: Patient Refused Admin: 04/13/25 08:49 Dose: 1 tab Documented By: Admin: 04/12/25 12:31 Dose: 1 tab Documented By: LEO Thiamine HCl (Thiamine 100 Mg Tablet) 100 mg PO X1 ONE Stop: 04/06/25 14:35 Last Admin: 04/06/25 15:30 Dose: 100 mg Documented By: BD Thiamine HCl (Thiamine Inj 100 Mg/Ml Vial 2 Ml) 500 mg IVP X1 ONE Stop: 04/06/25 21:09 Last Admin: 04/06/25 21:56 Dose: 500 mg Documented By: CB Thiamine HCl (Thiamine 100 Mg Tablet) 100 mg PO QDAY JIM Stop: 05/07/25 08:59 Last Admin: 04/12/25 09:10 Dose: 100 mg Documented By: Admin: 04/11/25 08:58 Dose: 100 mg Documented By: Admin: 04/10/25 08:57 Dose: 100 mg Documented By: Admin: 04/09/25 08:10 Dose: 100 mg Documented By: Admin: 04/08/25 08:26 Dose: 100 mg Documented By: Admin: 04/07/25 09:09 Dose: 100 mg Documented By: See above Consultations Consultation(s) initiated? (list below): No Diagnosis Differential diagnosis abdominal pain: abdominal pain, constipation, gastroenteritis and pancreatitis Most likely diagnosis given after review of the tests above:: ALCOHOL WITHDRAWAL Admission Indicated Admission indicated?: not indicated Explain why admission is indicated or not indicated:: Signed out pending final disposition. Admission Request Was there a request for admission?: No Disposition Plan Disposition Plan: other (specify) (Signed out to Dr. Lund ) Discharge Plan Plan Patient Disposition: Admit Acute Care w/in Hospital Patient condition on transfer: Stable and Benefits outweigh risks Problem List Clinical Impression: Alcohol withdrawal, Hypomagnesemia, Elevated troponin, LFT elevation, Hyperglycemia due to type 2 diabetes mellitus
--- NOTE | 2025-04-06 18:06 | PC.NURSE ---
per pt he takes lisinopril 50 mg daily but has not had for [address] alisha lynne to only give 20 mg
[2025-04-06 18:29] LABS: Troponin I 0.051 ng/mL (0.0-0.045)
--- NOTE | 2025-04-06 18:38 | PD.EDADDENDU ---
Emergency Room Addendum Addendum Narrative: I took over the care from previous shift physician (Dr. Nassar) at _6PM_ on _04/06/25_. See previous notes for complete H & P and ED course. I reviewed all diagnostic test results. Diagnoses include: Alcohol withdrawal Hypomagnesemia Elevated troponin LFT elevation Hyperglycemia I discussed the case with our hospitalist. About the presentation and exam and diagnostics and treatments here. And need of further care in the hospital. Will accept the patient. Grady Lund MD
--- NOTE | 2025-04-06 18:40 | XR_ITS ---
Examination: Abdomen sonogram, Limited Date and time of exam: April 06, 2025, 1850 hours INDICATIONS: Right upper abdominal pain nausea vomiting this week Technique: Real-time case scale transabdominal sonographic images of the upper abdomen obtained. Findings: Normal gallbladder Normal common bile duct 0.4 cm Pancreatic head 3.6 cm Liver 17.1 cm fatty infiltration Normal hepatopetal portal venous flow Patent IVC IMPRESSION: Normal gallbladder Mild to moderate hepatomegaly fatty infiltration no focal liver lesions
[2025-04-06] MEDS: Magnesium Sulfate 4 GM Ivpb 4 GM/50 ML BAG IV ×2 (18:56→22:58)
[2025-04-06] MEDS: METOPROLOL TARTRATE 25 MG TABLET 50 MG PO (18:56)
[2025-04-06] MEDS: RINGERS LACTATED 1000 ML 1,000 ML IV (18:57)
[2025-04-06 19:07] LABS: Partial Thromboplastin Time 27.9 Seconds (22.0-36.0)
[2025-04-06 19:14] LABS: Amylase 60 U/L (30-118); Bilirubin,Direct 0.1 mg/dL (0.0-0.3); Creatine Kinase 294 U/L (34-171); Magnesium 1.0 mg/dL (1.6-2.6); Thyroid Stimulating Hormone 1.62 uIU/mL (0.55-4.78)
[2025-04-06 19:24] LABS: Glucose Estimated Average 171 mg/dL (80-131); Hemoglobin A1C 7.6 % Hgb (4.8-6.0)
[2025-04-06 19:33] LABS: B-Type Natriuretic Peptide < 20 pg/mL (0-100)
[2025-04-06 19:59] LABS: Lactate (Lactic Acid) 2.1 mMol/L (0.4-2.0)
[2025-04-06 20:00] LABS: Base Excess, Venous 3 (-3-3); O2 Saturation, Venous 91 % (96-97); PCO2, Venous 39 mmHg (36-56); PO2, Venous 54 mmHg (15-58); pH, Venous 7.45 (7.33-7.66)
[2025-04-06 20:04] LABS: Beta Hydroxybutyrate 0.4 mmol/L (<0.6)
[2025-04-06 20:17] LABS: Ammonia 10 uMol/L (11-32)
[2025-04-06 20:38] LABS: Amphetamine/Methamp Scrn,U Negative (Negative); Barbiturate Screen,Urine Negative (Negative); Benzodiazepines Screen,Urine Negative (Negative); Benzoylecgonine Screen, Ur Negative (Negative); Fentanyl Screen,Urine Negative (Negative); Opiate Screen,Urine Negative (Negative); THC Screen,Urine Negative (Negative)
[2025-04-06 21:40] LABS: Phosphorous 3.1 mg/dL (2.4-5.1)
[2025-04-06] MEDS: THIAMINE INJ 100 MG/ML VIAL 2 ML 500 MG IVP (21:56)
[2025-04-06] MEDS: Milk Of Magnesia Susp 30 ML UDC PO (22:04)
[2025-04-06] MEDS: RINGERS LACTATED 1000 ML 1,000 ML 75 ML IV (22:05)
[2025-04-06 22:47] LABS: Reflex Lactate? Y
[2025-04-06 22:50] LABS: Troponin I 0.046 ng/mL (0.0-0.045)
[2025-04-06 23:11] LABS: Lactic Acid, 3 HR 0.9 mMol/L (0.4-2.0)
[2025-04-07] VITALS (10 sets, daily range): BP systolic 146–165; BP diastolic 91–114; PULSE 87–105; RESP 16–95; TEMP 36.7–36.8; O2SAT 96–99; BMI 29.3
[2025-04-07 05:38] LABS: Basophils # (Auto) 0.0 Thou/mm3 (0.0-0.2); Basophils % (Auto) 1 % (0-2.5); Eosinophils # (Auto) 0.2 Thou/mm3 (0.0-0.5); Eosinophils % (Auto) 6 % (0-10); Hematocrit 33.1 % (41.0-53.0); Hemoglobin 11.7 g/dL (13.5-16.0); Immature Granulocytes Auto 0.02 Thou/mm3 (0.00-0.00); Lymphocytes # (Auto) 0.7 Thou/mm3 (1.0-4.8); Lymphocytes % (Auto) 22 % (10-50); Mean Corpuscular HGB Conc 35.3 g/dl (31.0-37.0); Mean Corpuscular Hemoglobin 31.2 pg (25.0-35.0); Mean Corpuscular Volume 88 fL (80-100); Monocytes # (Auto) 0.3 Thou/mm3 (0.0-0.8); Monocytes % (Auto) 8 % (0-12); Neutrophils # (Auto) 2.0 Thou/mm3 (1.8-7.7); Neutrophils % (Auto) 63 % (37-80); Nucleated Red Blood Cell # 0.00 Thou/mm3 (0.00-0.00); Nucleated Red Blood Cell % 0 /100 WBC (0); Platelet Count 151 Thou/mm3 (140-440); RDW Standard Deviation 42.4 fL (35.1-43.9); Red Blood Count 3.75 Miln/mm3 (4.50-5.90); White Blood Count 3.2 Thou/mm3 (3.8-10.6)
[2025-04-07 05:58] LABS: Alanine Aminotransferase 81 U/L (10-49); Albumin, Serum 3.9 gm/dL (3.5-5.0); Albumin/Globulin Ratio 1.6 (1.2-2.2); Alkaline Phosphatase 70 U/L (46-116); Anion Gap 9 (7-16); Aspartate Amino Transferase 149 U/L (0-34); BUN/Creatinine Ratio 8 Ratio (12-20); Bilirubin,Total 0.7 mg/dL (0.3-1.2); Blood Urea Nitrogen 6 mg/dL (9-23); Calcium 8.4 mg/dL (8.3-10.6); Calcium (Corrected) 8.5 mg/dL (8.5-10.1); Carbon Dioxide 30.8 mMol/L (20.0-31.0); Chloride 98 mMol/L (98-107); Creatinine (Component) 0.8 mg/dL (0.6-1.3); Estimated Creatinine Clearance 127.5 mL/min (>60); Globulin 2.5 gm/dL (2.3-3.5); Glucose 158 mg/dL (74-106); Magnesium 2.3 mg/dL (1.6-2.6); Osmolality,Calculated 276 (275-295); Phosphorous 2.8 mg/dL (2.4-5.1); Potassium 3.3 mMol/L (3.4-5.1); Sodium 138 mMol/L (136-145); Total Protein 6.4 gm/dL (5.7-8.2); eGFR > 60 See Note
--- NOTE | 2025-04-07 07:12 | PD.HHHP ---
Documentation for date of: 04/06/25 HPI - Hospitalist History of Present Illness History of Present Illness: NSTEMI/ Abdominal pain History of present illness: 39-year-old male patient with history of alcohol abuse by ambulance for abdominal pain, nausea, decreased p.o. intake, and feeling unwell all of which started a few days prior. Patient states that his pain is nonradiating, 6/7 out of 10 in intensity, continuous and worse at [facility]Q. Patient denies any other symptoms of diarrhea, shortness of breath, chest pain, palpitations. Patient has long history of extensive alcohol use but reports abstaining from alcohol consumption for the past few months but started drinking last week daily consumption of 1 bottle of vodka aday, at ED patient was noted to be tachycardic, and hypertensive, labs were noted for leukopenia, anion gap 17, magnesium of 1.1, troponin of 0.046 and elevated AST/ALT, mild lactic acid elevation and UTOX noted for alcohol level of 132, abdomen/pelvis CT noted for severe fatty infiltrations throughout liver and diverticulosis. Patient was noted to have significant tremors and appearing to be agitated raising concern for alcohol withdrawal. Patient admitted for alcohol withdrawal and intractable abdominal pain. Review of Systems Review of Systems Systems Reviewed: All systems reviewed, normal except as documented Past Medical History Past Medical History CARDIAC: Positive Hypertension GASTROINTESTINAL: Positive Gastroesophageal Reflux Disease ENDOCRINE: Positive Diabetes Mellitus Type 2 PSYCHO/SOCIAL: Positive Depression and Anxiety Social History SMOKING STATUS: Never smoker Meds Home Medications and Allergies Home Medications ?Medication ?Instructions ?Recorded ?Confirmed ?Type lisinopril 40 mg tablet 40 mg PO QDAY 04/07/25 04/07/25 History metformin 850 mg tablet 850 mg PO QDAY 04/07/25 04/07/25 History omeprazole 40 mg capsule,delayed 40 mg PO QDAY 04/07/25 04/07/25 History release Allergies Allergy/AdvReac Type Severity Reaction Status Date / Time No Known Allergies Allergy Verified 04/06/25 14:46 Exam Vital Signs Temp Pulse Resp BP Pulse Ox O2 Del Method 98.3 F 102 H 18 157/97 H 96 Room Air 04/07/25 04:00 04/07/25 04:00 04/07/25 04:00 04/07/25 04:00 04/07/25 04:00 04/07/25 04:00 Narrative General: Overweight, anxious appearing, mildly agitated. HEENT: Normocephalic, atraumatic, anicteric, EOM intact, PERRLA, moist mucous membranes. Heart: Tachycardic, no murmur or gallop. Lungs: Clear to auscultation with equal breath sounds bilaterally. Abdomen: Bowel sounds normal, distended, tender to palpation diffusely, no CVA tenderness. Extremities: Sensation, circulation &motor function intact and equal in all extremities. Neurologic: Alert and oriented to name, place and date of , CN II-XII intact, able to move all extremities, DTRs normal Skin: Warm, dry, no rashes or ecchymosis noted. Results - Hospitalist Labs Diagrams: 04/07/25 04:27 04/07/25 04:27 Labs: Short CBC 04/06/25 04/07/25 Range/Units 14:40 04:27 WBC 3.6 L 3.2 L (3.8-10.6) Thou/mm3 Hgb 14.0 11.7 L D (13.5-16.0) g/dL Hct 39.4 L 33.1 L (41.0-53.0) % Plt Count 164 151 (140-440) Thou/mm3 BMP 04/06/25 04/07/25 14:40 04:27 Sodium 141 138 Potassium 3.5 3.3 L Chloride 96 L 98 Carbon Dioxide 28.5 30.8 BUN 5 L 6 L Creatinine 0.8 0.8 Glucose 188 H 158 H Calcium 9.2 8.4 Cardiac Enzymes 04/06/25 04/06/25 04/06/25 Range/Units 14:40 17:55 22:18 Total Creatine Kinase 294 H (34-171) U/L Troponin I 0.046 H* 0.051 H* 0.046 H* (0.0-0.045) ng/mL Liver Function 04/06/25 04/06/25 04/07/25 Range/Units 14:40 17:55 04:27 Total Bilirubin 0.5 0.7 (0.3-1.2) mg/dL Direct Bilirubin 0.1 (0.0-0.3) mg/dL AST 172 H 149 H (0-34) U/L ALT 88 H 81 H (10-49) U/L Alkaline Phosphatase 95 70 D (46-116) U/L Albumin 4.9 3.9 D (3.5-5.0) gm/dL Urine 04/06/25 Range/Units 15:50 Urine Color Yellow (Lt Yel-Yel) Urine Clarity Clear (Clear/Hazy) Urine pH 8.0 H (5.0-7.0) Ur Specific [place] 1.023 (1.001-1.035) Urine Protein 2+ A (Neg - Trace) Urine Glucose (UA) 2+ A (Negative) ABG Interpretation ABG results: 04/06/25 19:35 VBG pH 7.45 VBG pCO2 39 VBG pO2 54 VBG Base Excess 3 Assessment & Plan -Hospitalist Additional Assessment 39-year-old male patient with history of alcohol abuse by ambulance for abdominal pain, nausea, decreased p.o. intake, and feeling unwell all of which started a few days prior. Patient admitted for alcohol withdrawal and intractable abdominal pain. #Alcohol withdrawal #Alcohol intoxication CIWA Folate/ Thiamine supplementation Counseling regarding alcohol abuse Social referral #NSTEMI #Hypertensive emergency #Elevated CK EKG negative for T wave/ ST changes. Trend trops BP control with Labetalol. #Diverticulosis #Intractable abdominal pain Pain management Anti-emetic #Leukopenia Wbc 3.6 Continue to monitor daily CBC DVT prophylaxis: enoxaparin Diet: Regular Full code After examination of the patient and review of the clinical data I feel that this patient needs admission to the hospital for further treatment/evaluation. Plan of care discussed with patient and is in agreement. I Mars Brown MD, attest that I was physically present for ding portions of evaluation, and examined patient, labs and imagings and plan of care were discussed with IM residents team, and I agree with the findings and plans documented above. Quality Measures Quality Measures VTE prophylaxis
--- NOTE | 2025-04-07 07:58 | ESPR_ITS ---
<Statement entered by Morgan Hilton MD - 04/07/25 18:08> I saw and examined patient personally and supervised PGY 1 resident, Dr. Rivera with formulating a management plan. I agree with the documentation with the exceptions as listed below. Patient was admitted for alcohol withdrawal and after being sober for 8 months. He said last week he bought a bottle of alcohol and fell off the wagon. On CIWA protocol with lorazepam p.o. as needed, CIWA score today was 8. Anticipate discharge within next 24 to 48 hours once condition improves. Plan of care discussed with Attending Dr. Anna Hilton MD PGY 2 Disclaimer: This note was dictated by speech recognition. Minor errors in molding cutter may be present due to voice recognition software. Documentation for date of: 04/07/25 Subjective Subjective Interval history: Patient seen and examined at bedside; no acute events overnight. Overnight CIWA score up to 11; this morning was 8. Patient was counseled on stopping alcohol consumption due to its deleterious effects. Patient still having abdominal pain. Exam Vital Signs Temp Pulse Resp BP Pulse Ox O2 Del Method 98.3 F 102 H 18 157/97 H 96 Room Air 04/07/25 04:00 04/07/25 04:00 04/07/25 04:00 04/07/25 04:00 04/07/25 04:00 04/07/25 04:00 Narrative Exam General: A/O x3, no acute distress, well-nourished, well-developed, overweight Eyes: PERRL, EOMI. Anicteric, vision grossly intact. Ears: No ear pain, no ear discharge, Hearing grossly intact. Nose: No nasal discharge. Mouth/Throat: Moist mucous membranes, no redness, no lesions. Neck: Neck supple, non-tender, no cervical lymphadenopathy. Lungs: Clear WYATT to auscultation and percussion, No accessory muscle use. Cardio: Normal S1/S2, regular rhythm, no murmurs, no JVD or carotid bruits. Abdomen: Soft, non-tender, no palpable masses, peristalsis present, no guarding or rebound. Extremities: Symmetrical, no significant deformities, no peripheral edema , non-tender, peripheral pulses present. Skin: No rashes, no lesions, warm to touch. Neuro: No focal neurological deficits. Psych: Cooperative, appropriate mood and effect. Objective Labs 04/08/25 04:49 04/08/25 04:49 Labs: Laboratory Results - last 24 hr 04/06/25 04/06/25 04/06/25 14:40 15:50 17:55 WBC 3.6 L RBC 4.58 Hgb 14.0 Hct 39.4 L MCV 86 MCH 30.6 MCHC 35.5 RDW Std Deviation 39.9 Plt Count 164 Neut % (Auto) 66 Lymph % (Auto) 22 [place] % (Auto) 6 Eos % (Auto) 4 Baso % (Auto) 1 Neut # (Auto) 2.4 Lymph # (Auto) 0.8 L [place] # (Auto) 0.2 Eos # (Auto) 0.1 Baso # (Auto) 0.0 Immature Gran # (Auto) 0.03 H Absolute Nucleated RBC 0.00 Immature Gran % 1 H Nucleated RBC % 0 PT 10.9 INR 1.0 APTT 27.9 VBG pH VBG pCO2 VBG pO2 VBG O2 Sat (Rosalinda) VBG Base Excess Sodium 141 Potassium 3.5 Chloride 96 L Carbon Dioxide 28.5 Anion Gap 17 H BUN 5 L Creatinine 0.8 Estim Creat Clear Calc 126.9 eGFR > 60 BUN/Creatinine Ratio 6 L Glucose [address] Glu mg/dL 171 H Hemoglobin A1c 7.6 H Calculated Osmolality 283 Lactic Acid Calcium 9.2 Corrected Calcium 9.2 Phosphorus Magnesium 1.1 L 1.0 L Total Bilirubin 0.5 Direct Bilirubin 0.1 AST 172 H ALT 88 H Alkaline Phosphatase 95 Ammonia Total Creatine Kinase 294 H Troponin I 0.046 H* 0.051 H* B-Natriuretic Peptide < 20 Total Protein 8.1 Albumin 4.9 Globulin 3.2 Albumin/Globulin Ratio 1.5 Amylase 60 Lipase 59 H Beta-Hydroxybutyrate/Acetoacetate 0.4 TSH 1.62 Ur Collection Type Clean Catch Urine Color Yellow Urine Clarity Clear Urine pH 8.0 H Ur Specific [place] 1.023 Urine Protein 2+ A Urine Glucose (UA) 2+ A Urine Ketones 1+ A Urine Blood 2+ A Urine Nitrite Negative Urine Bilirubin Negative Urine Urobilinogen (Auto) Negative Ur Leukocyte Esterase Negative Urine RBC 17 H Urine WBC 1 Ur Squamous Epith Cells < 1 Urine Bacteria None Hyaline Casts < 1 Urine Sperm Present A Urine Opiates Screen Negative Urine Fentanyl Screen Negative Ur Barbiturates Screen Negative U Amphetamin/Meth Scrn Negative U Benzodiazepines Scrn Negative U Cocaine Metab Screen Negative U Marijuana (THC) Screen Negative Ethyl Alcohol 132.0 H 04/06/25 04/06/25 04/06/25 19:35 22:18 22:58 WBC RBC Hgb Hct MCV MCH MCHC RDW Std Deviation Plt Count Neut % (Auto) Lymph % (Auto) [place] % (Auto) Eos % (Auto) Baso % (Auto) Neut # (Auto) Lymph # (Auto) [place] # (Auto) Eos # (Auto) Baso # (Auto) Immature Gran # (Auto) Absolute Nucleated RBC Immature Gran % Nucleated RBC % PT INR APTT VBG pH 7.45 VBG pCO2 39 VBG pO2 54 VBG O2 Sat (Rosalinda) 91 L VBG Base Excess 3 Sodium Potassium Chloride Carbon Dioxide Anion Gap BUN Creatinine Estim Creat Clear Calc eGFR BUN/Creatinine Ratio Glucose Estimated Ave Glu mg/dL Hemoglobin A1c Calculated Osmolality Lactic Acid 2.1 H 0.9 Calcium Corrected Calcium Phosphorus 3.1 Magnesium Total Bilirubin Direct Bilirubin AST ALT Alkaline Phosphatase Ammonia 10 L Total Creatine Kinase Troponin I 0.046 H* B-Natriuretic Peptide Total Protein Albumin Globulin Albumin/Globulin Ratio Amylase Lipase Beta-Hydroxybutyrate/Acetoacetate TSH Ur Collection Type Urine Color Urine Clarity Urine pH Ur Specific [place] Urine Protein Urine Glucose (UA) Urine Ketones Urine Blood Urine Nitrite Urine Bilirubin Urine Urobilinogen (Auto) Ur Leukocyte Esterase Urine RBC Urine WBC Ur Squamous Epith Cells Urine Bacteria Hyaline Casts Urine Sperm Urine Opiates Screen Urine Fentanyl Screen Ur Barbiturates Screen U Amphetamin/Meth Scrn U Benzodiazepines Scrn U Cocaine Metab Screen U Marijuana (THC) Screen Ethyl Alcohol 04/07/25 04:27 WBC 3.2 L RBC 3.75 L Hgb 11.7 L D Hct 33.1 L MCV 88 MCH 31.2 MCHC 35.3 RDW Std Deviation 42.4 Plt Count 151 Neut % (Auto) 63 Lymph % (Auto) 22 [place] % (Auto) 8 Eos % (Auto) 6 Baso % (Auto) 1 Neut # (Auto) 2.0 Lymph # (Auto) 0.7 L [place] # (Auto) 0.3 Eos # (Auto) 0.2 Baso # (Auto) 0.0 Immature Gran # (Auto) 0.02 H Absolute Nucleated RBC 0.00 Immature Gran % 1 H Nucleated RBC % 0 PT INR APTT VBG pH VBG pCO2 VBG pO2 VBG O2 Sat (Rosalinda) VBG Base Excess Sodium 138 Potassium 3.3 L Chloride 98 Carbon Dioxide 30.8 Anion Gap 9 BUN 6 L Creatinine 0.8 Estim Creat Clear Calc 127.5 eGFR > 60 BUN/Creatinine Ratio 8 L Glucose [address] Glu mg/dL Hemoglobin A1c Calculated Osmolality 276 Lactic Acid Calcium 8.4 Corrected Calcium 8.5 Phosphorus 2.8 Magnesium 2.3 Total Bilirubin 0.7 Direct Bilirubin AST 149 H ALT 81 H Alkaline Phosphatase 70 D Ammonia Total Creatine Kinase Troponin I B-Natriuretic Peptide Total Protein 6.4 Albumin 3.9 D Globulin 2.5 Albumin/Globulin Ratio 1.6 Amylase Lipase Beta-Hydroxybutyrate/Acetoacetate TSH Ur Collection Type Urine Color Urine Clarity Urine pH Ur Specific [place] Urine Protein Urine Glucose (UA) Urine Ketones Urine Blood Urine Nitrite Urine Bilirubin Urine Urobilinogen (Auto) Ur Leukocyte Esterase Urine RBC Urine WBC Ur Squamous Epith Cells Urine Bacteria Hyaline Casts Urine Sperm Urine Opiates Screen Urine Fentanyl Screen Ur Barbiturates Screen U Amphetamin/Meth Scrn U Benzodiazepines Scrn U Cocaine Metab Screen U Marijuana (THC) Screen Ethyl Alcohol ABG Interpretation ABG results: 04/06/25 19:35 VBG pH 7.45 VBG pCO2 39 VBG pO2 54 VBG Base Excess 3 Quality Measures Quality Measures VTE prophylaxis Assessment & Plan Assessment Current Active Medications: Generic Name Dose Route Start Last Admin Trade Name Freq PRN Reason Stop Dose Admin Dextrose 25 ml 04/06/25 21:09 Dextrose 50%-Water Inj 50 Ml Syringe IV 05/06/25 21:08 Q15MIN PRN BG 50-70 responsive npo pt Dextrose 50 ml 04/06/25 21:09 Dextrose 50%-Water Inj 50 Ml Syringe IV 05/06/25 21:08 Q15MIN PRN BG <50 OR BG <70 & pt unresponsive Diazepam 10 mg 04/06/25 21:17 Diazepam Inj 5 Mg/Ml Vial 2 Ml IVP 04/11/25 21:16 Q2HR PRN CIWA SCORE 20-25 Diazepam 10 mg 04/06/25 21:17 Diazepam Inj 5 Mg/Ml Vial 2 Ml IVP X1 PRN Breakthrough Agitation Diazepam 5 mg 04/06/25 21:17 Diazepam Inj 5 Mg/Ml Vial 2 Ml IVP X1 PRN Breakthrough Agitation Diazepam 5 mg 04/06/25 21:17 Diazepam Inj 5 Mg/Ml Vial 2 Ml IVP 04/11/25 21:16 Q2HR PRN CIWA SCORE 15-19 Enoxaparin Sodium 40 mg 04/07/25 09:00 Enoxaparin Sod Inj 40 Mg/0.4 Ml Syringe SC 04/21/25 08:59 QDAY JIM Folic Acid 1 mg 04/07/25 09:00 Folic Acid 1 Mg Tablet PO 05/07/25 08:59 QDAY [facility] Glucagon 1 mg 04/06/25 21:09 Glucagon Inj 1 Mg Vial IM Q15MIN PRN BG <70, and no IV access Lactated Ringer's 1,000 mls @ 75 mls/hr 04/06/25 21:15 04/06/25 22:05 Lactated Ringers IV 05/06/25 21:14 75 mls/hr .[id number] JIM Administration Insulin Human Lispro 0 unit 04/07/25 07:30 Insulin Lispro (Admelog) 1 Unit/0.01 Ml Unit SC 05/07/25 07:29 AC JIM Protocol Labetalol HCl 10 mg 04/07/25 07:34 Labetalol Inj 5 Mg/Ml Vial 4 Ml IVP 05/07/25 07:59 Q2HR PRN SBP>180 or DBP>100 Lorazepam 1 mg 04/06/25 21:17 04/07/25 05:13 Lorazepam 0.5 Mg Tablet PO 04/11/25 21:16 1 mg Q4HR PRN Administration CIWA SCORE 6-9 Lorazepam 2 mg 04/06/25 21:17 Lorazepam 0.5 Mg Tablet PO 04/11/25 21:16 Q4HR PRN CIWA SCORE 10-14 Sennosides 1 tab 04/06/25 21:16 Senna Tablet PO 05/06/25 21:15 QDAY PRN constipation Protocol Thiamine HCl 100 mg 04/07/25 09:00 Thiamine 100 Mg Tablet PO 05/07/25 08:59 QDAY [facility] Plan Patient is 39 yo M with PMH of AUD comes to ED for abdominal pain, nausea, decreased p.o. intake, and feeling unwell all of which started a few days prior. Patient admitted for alcohol withdrawal and intractable abdominal pain. #Alcohol use disorder #Alcohol withdrawal Patient drank 1L vodka before previous admission. Counseled patient on EtOH use. Plan: [facility] protocol Folate/ Thiamine supplementation Continue AUD counseling Social referral #NSTEMI #Hypertensive emergency #Elevated CK End organ damage confirmeed by elevated troponin (0.051 peak, 0.046 last). CK 294 on admission. EKG negative for T wave/ ST changes. Plan: BP control with Labetalol. #Diverticulosis #Intractable abdominal pain Patient still having abdominal pain. Pain management Anti-emetic #Leukopenia Wbc 3.6 on admission. 3.2 today. Plan: Continue to trend Disposition: Med-Tele DVT prophylaxis: Lovenox 40 qday GI prophylaxis: Diet: regular Lines: PIV CODE STATUS: Full This case was discussed with my attending physician, Dr. Kellogg, and senior resident, Dr. Hilton. Kolton Rivera, PGY1 Attending Provider Attestation/Addendum 39-year-old male patient who was admitted for alcohol withdrawal. The patient complained of abdominal pain. He is afebrile. Currently no nausea vomiting reported. He has diabetes and hypertension. The patient has uncontrolled blood pressure with elevated troponin. He has elevated transaminases. Patient was advised to alcohol use to prevent further liver damage and maintain good health. I discussed with and supervised the resident physician who took care of this patient. I agree with the assessment and plan as above. Patient verbalized understanding.
[2025-04-07] MEDS: FOLIC ACID 1 MG TABLET PO (09:09)
[2025-04-07] MEDS: THIAMINE 100 MG TABLET PO (09:09)
[2025-04-07] MEDS: ENOXAPARIN SOD INJ 40 MG/0.4 ML SYRINGE SC (09:09)
[2025-04-07] MEDS: POTASSIUM CHL 10 mEq IVPB 10 MEQ/100 ML BAG 100 MEQ IV ×2 (09:57→11:34)
--- NOTE | 2025-04-07 10:51 | PC.SS ---
[employer] (SW) Susanne attempted to meet with patient to complete initial assessment. Patient was deeply asleep, unable to wake-up. SW notified RN-Keira to notify SW when patient is awake.
[2025-04-07] MEDS: RINGERS LACTATED 1000 ML 1,000 ML 75 ML IV (11:35)
[2025-04-07] MEDS: ACETAMINOPHEN 325 MG TABLET 650 MG PO (19:59)
[2025-04-07] MEDS: ONDANSETRON INJ 2 MG/ML INJ 2 ML 4 MG IVP (20:00)
[2025-04-07] MEDS: hydrALAZINE INJ 20 MG/ML VIAL 10 MG IVP (23:22)
[2025-04-08] VITALS (14 sets, daily range): BP systolic 143–159; BP diastolic 93–106; PULSE 75–101; RESP 16–97; TEMP 36.1–36.6; O2SAT 96–98
[2025-04-08] MEDS: RINGERS LACTATED 1000 ML 1,000 ML 75 ML IV ×2 (00:55→18:40)
--- NOTE | 2025-04-08 03:17 | PC.NURSE ---
DR. GAMEZ IN ROOM TO EVALUATE PATIENT FOR NEW ONSET ABDOMINAL PAIN 02/02. DR. GAMEZ STATED TO GIVE PATIENT NEXT SCHEDULED DOSE OF ATIVAN SINCE PATIENT SEEMS ANXIOUS, TYLENOL FOR THE PAIN, AND MELATONIN TO HELP PATIENT SLEEP.
[2025-04-08] MEDS: ACETAMINOPHEN 325 MG TABLET 650 MG PO ×2 (03:33→19:04)
[2025-04-08] MEDS: MELATONIN 3 MG TABLET 6 MG PO ×2 (03:37→20:52)
[2025-04-08] MEDS: ONDANSETRON INJ 2 MG/ML INJ 2 ML 4 MG IVP ×2 (03:41→19:05)
[2025-04-08 05:48] LABS: Basophils # (Auto) 0.0 Thou/mm3 (0.0-0.2); Basophils % (Auto) 1 % (0-2.5); Eosinophils # (Auto) 0.2 Thou/mm3 (0.0-0.5); Eosinophils % (Auto) 8 % (0-10); Hematocrit 33.2 % (41.0-53.0); Hemoglobin 11.9 g/dL (13.5-16.0); Immature Granulocytes Auto 0.02 Thou/mm3 (0.00-0.00); Lymphocytes # (Auto) 0.8 Thou/mm3 (1.0-4.8); Lymphocytes % (Auto) 36 % (10-50); Mean Corpuscular HGB Conc 35.8 g/dl (31.0-37.0); Mean Corpuscular Hemoglobin 31.4 pg (25.0-35.0); Mean Corpuscular Volume 88 fL (80-100); Monocytes # (Auto) 0.2 Thou/mm3 (0.0-0.8); Monocytes % (Auto) 9 % (0-12); Neutrophils # (Auto) 1.1 Thou/mm3 (1.8-7.7); Neutrophils % (Auto) 46 % (37-80); Nucleated Red Blood Cell # 0.00 Thou/mm3 (0.00-0.00); Nucleated Red Blood Cell % 0 /100 WBC (0); Platelet Count 135 Thou/mm3 (140-440); RDW Standard Deviation 41.0 fL (35.1-43.9); Red Blood Count 3.79 Miln/mm3 (4.50-5.90); White Blood Count 2.3 Thou/mm3 (3.8-10.6)
[2025-04-08 06:10] LABS: Alanine Aminotransferase 66 U/L (10-49); Albumin, Serum 3.8 gm/dL (3.5-5.0); Albumin/Globulin Ratio 1.5 (1.2-2.2); Alkaline Phosphatase 66 U/L (46-116); Anion Gap 11 (7-16); Aspartate Amino Transferase 110 U/L (0-34); BUN/Creatinine Ratio 7 Ratio (12-20); Bilirubin,Total 0.5 mg/dL (0.3-1.2); Blood Urea Nitrogen 5 mg/dL (9-23); Calcium 8.4 mg/dL (8.3-10.6); Calcium (Corrected) 8.6 mg/dL (8.5-10.1); Carbon Dioxide 26.9 mMol/L (20.0-31.0); Chloride 100 mMol/L (98-107); Creatinine (Component) 0.7 mg/dL (0.6-1.3); Estimated Creatinine Clearance 145.7 mL/min (>60); Globulin 2.5 gm/dL (2.3-3.5); Glucose 148 mg/dL (74-106); Osmolality,Calculated 275 (275-295); Potassium 3.2 mMol/L (3.4-5.1); Sodium 138 mMol/L (136-145); Total Protein 6.3 gm/dL (5.7-8.2); eGFR > 60 See Note
[2025-04-08] MEDS: ENOXAPARIN SOD INJ 40 MG/0.4 ML SYRINGE SC (08:26)
[2025-04-08] MEDS: THIAMINE 100 MG TABLET PO (08:26)
[2025-04-08] MEDS: FOLIC ACID 1 MG TABLET PO (08:26)
[2025-04-08 08:58] LABS: Magnesium 1.4 mg/dL (1.6-2.6); Phosphorous 3.1 mg/dL (2.4-5.1)
[2025-04-08] MEDS: Magnesium Sulfate 4 GM Ivpb 4 GM/50 ML BAG IV (09:42)
--- NOTE | 2025-04-08 13:20 | PD.RESPRO ---
Documentation for date of: 04/08/25 Subjective Subjective Interval history: Patient seen and examined at bedside; no acute events overnight. Highest CIWA overnight was 15. Exam Vital Signs Temp Pulse Resp BP Pulse Ox O2 Del Method 97.0 F 82 18 151/103 H 97 Room Air 04/08/25 08:00 04/08/25 13:14 04/08/25 09:50 04/08/25 08:00 04/08/25 08:00 04/08/25 08:00 Narrative Exam General: A/O x3, no acute distress, well-nourished, well-developed, overweight Eyes: PERRL, EOMI. Anicteric, vision grossly intact. Ears: No ear pain, no ear discharge, hearing grossly intact. Nose: No nasal discharge. Mouth/Throat: Moist mucous membranes, no redness, no lesions. Neck: Neck supple, non-tender, no cervical lymphadenopathy. Lungs: Clear WYATT to auscultation and percussion, No accessory muscle use. Cardio: Normal S1/S2, regular rhythm, no murmurs, no JVD or carotid bruits. Abdomen: Soft, non-tender, no palpable masses, peristalsis present, no guarding or rebound. Extremities: Symmetrical, no significant deformities, no peripheral edema , non-tender, peripheral pulses present. Skin: No rashes, no lesions, warm to touch. Neuro: No focal neurological deficits. Psych: Cooperative, appropriate mood and effect. Objective Labs 04/09/25 05:08 04/09/25 05:08 Labs: Laboratory Results - last 24 hr 04/08/25 04:49 WBC 2.3 L RBC 3.79 L Hgb 11.9 L Hct 33.2 L MCV 88 MCH 31.4 MCHC 35.8 RDW Std Deviation 41.0 Plt Count 135 L Neut % (Auto) 46 Lymph % (Auto) 36 [place] % (Auto) 9 Eos % (Auto) 8 Baso % (Auto) 1 Neut # (Auto) 1.1 L Lymph # (Auto) 0.8 L [place] # (Auto) 0.2 Eos # (Auto) 0.2 Baso # (Auto) 0.0 Immature Gran # (Auto) 0.02 H Absolute Nucleated RBC 0.00 Immature Gran % 1 H Nucleated RBC % 0 Sodium 138 Potassium 3.2 L Chloride 100 Carbon Dioxide 26.9 Anion Gap 11 BUN 5 L Creatinine 0.7 Estim Creat Clear Calc 145.7 eGFR > 60 BUN/Creatinine Ratio 7 L Glucose 148 H Calculated Osmolality 275 Calcium 8.4 Corrected Calcium 8.6 Phosphorus 3.1 Magnesium 1.4 L Total Bilirubin 0.5 AST 110 H ALT 66 H Alkaline Phosphatase 66 Total Protein 6.3 Albumin 3.8 Globulin 2.5 Albumin/Globulin Ratio 1.5 ABG Interpretation ABG results: 04/06/25 19:35 VBG pH 7.45 VBG pCO2 39 VBG pO2 54 VBG Base Excess 3 Quality Measures Quality Measures VTE prophylaxis Assessment & Plan Assessment Current Active Medications: Generic Name Dose Route Start Last Admin Trade Name Freq PRN Reason Stop Dose Admin Acetaminophen 650 mg 04/07/25 19:44 04/07/25 19:59 Acetaminophen 325 Mg Tablet PO 05/07/25 19:43 650 mg Q6HR PRN Administration Fever > 100.4 or pain Dextrose 25 ml 04/06/25 21:09 Dextrose 50%-Water Inj 50 Ml Syringe IV 05/06/25 21:08 Q15MIN PRN BG 50-70 responsive npo pt Dextrose 50 ml 04/06/25 21:09 Dextrose 50%-Water Inj 50 Ml Syringe IV 05/06/25 21:08 Q15MIN PRN BG <50 OR BG <70 & pt unresponsive Diazepam 10 mg 04/06/25 21:17 Diazepam Inj 5 Mg/Ml Vial 2 Ml IVP 04/11/25 21:16 Q2HR PRN CIWA SCORE 20-25 Diazepam 10 mg 04/06/25 21:17 Diazepam Inj 5 Mg/Ml Vial 2 Ml IVP X1 PRN Breakthrough Agitation Diazepam 5 mg 04/06/25 21:17 Diazepam Inj 5 Mg/Ml Vial 2 Ml IVP X1 PRN Breakthrough Agitation Diazepam 5 mg 04/06/25 21:17 Diazepam Inj 5 Mg/Ml Vial 2 Ml IVP 04/11/25 21:16 Q2HR PRN CIWA SCORE 15-19 Enoxaparin Sodium 40 mg 04/07/25 09:00 04/08/25 08:26 Enoxaparin Sod Inj 40 Mg/0.4 Ml Syringe SC 04/21/25 08:59 40 mg QDAY JIM Administration Folic Acid 1 mg 04/07/25 09:00 04/08/25 08:26 Folic Acid 1 Mg Tablet PO 05/07/25 08:59 1 mg QDAY JIM Administration Glucagon 1 mg 04/06/25 21:09 Glucagon Inj 1 Mg Vial IM Q15MIN PRN BG <70, and no IV access Lactated Ringer's 1,000 mls @ 75 mls/hr 04/06/25 21:15 04/08/25 00:55 Lactated Ringers IV 05/06/25 21:14 75 mls/hr .[id number] JIM Administration Insulin Human Lispro 0 unit 04/07/25 07:30 04/07/25 18:03 Insulin Lispro (Admelog) 1 Unit/0.01 Ml Unit SC 05/07/25 07:29 Not Given AC [facility] Protocol Labetalol HCl 10 mg 04/07/25 07:34 Labetalol Inj 5 Mg/Ml Vial 4 Ml IVP 05/07/25 07:59 Q2HR PRN SBP>180 or DBP>100 Lorazepam 1 mg 04/06/25 21:17 04/08/25 08:29 Lorazepam 0.5 Mg Tablet PO 04/11/25 21:16 1 mg Q4HR PRN Administration CIWA SCORE 6-9 Lorazepam 2 mg 04/07/25 12:02 04/07/25 19:40 Lorazepam 0.5 Mg Tablet PO 04/11/25 21:16 2 mg Q4HR PRN Administration CIWA SCORE 12-15 Melatonin 6 mg 04/08/25 21:00 Melatonin 3 Mg Tablet PO 05/08/25 20:59 [facility] Ondansetron HCl 4 mg 04/07/25 19:45 04/08/25 03:41 Ondansetron Inj 2 Mg/Ml Inj 2 Ml IVP 05/07/25 19:44 4 mg Q6HR PRN Administration NAUSEA OR VOMITING Protocol Sennosides 1 tab 04/06/25 21:16 Senna Tablet PO 05/06/25 21:15 QDAY PRN constipation Protocol Thiamine HCl 100 mg 04/07/25 09:00 04/08/25 08:26 Thiamine 100 Mg Tablet PO 05/07/25 08:59 100 mg QDAY JIM Administration Plan Patient is 39 yo M with PMH of AUD comes to ED for abdominal pain, nausea, decreased p.o. intake, and feeling unwell all of which started a few days prior. Patient admitted for alcohol withdrawal and intractable abdominal pain. #Alcohol use disorder #Alcohol withdrawal Patient drank 1L vodka before previous admission. Counseled patient on EtOH use. Plan: CIWA protocol; highest CIWA was 15 overnight Librium 25 BID Folate/ Thiamine supplementation Continue AUD counseling Social referral #NSTEMI #Hypertensive emergency #Elevated CK End organ damage confirmeed by elevated troponin (0.051 peak, 0.046 last). CK 294 on admission. EKG negative for T wave/ ST changes. Plan: BP control with Labetalol. #Diverticulosis #Intractable abdominal pain Patient still having abdominal pain. Fatty liver on ultrasound. Pain management Anti-emetic #Leukopenia Wbc 3.6 on admission. 2.3 today. Plan: Continue to trend Disposition: Med-Tele DVT prophylaxis: Lovenox 40 qday GI prophylaxis: Diet: regular Lines: PIV CODE STATUS: Full This case was discussed with my attending physician, Dr. Kellogg, and senior resident, Dr. Hilton. Kolton Larios Miguel, PGY1 Senior Resident Attestation: I discussed with and supervised the sports management intern physician involved in the care of this patient. I personally saw and examined the patient and discussed the assessment and plan with the entire medicine team, including my attending. I agree with the assessment and plan as documented above. Tod Doan MD PGY3 Internal Medicine Attending Provider Attestation/Addendum 39-year-old with alcohol use disorder admitted for alcohol withdrawal, history of diverticular disease uncontrolled blood pressure possible NSTEMI type II. Patient's vital signs are stable. Still complains of abdominal pain. No nausea or vomiting reported. No melena hematochezia reported I discussed with and supervised the resident physician who took care of this patient. I agree with the assessment and plan as above.
--- NOTE | 2025-04-08 14:56 | PC.SS ---
Mathew Bauer is a 39 year-old male admitted to [place] for Alcohol Withdrawal. SS conducted bedside contact with the patient to complete initial assessment and to discuss discharge planning. Role and reason explained. Patient confirmed demographic information. Patient identifies his brother Mathew Bauer [phone] as his surrogate decision maker. Pt states he is able to complete all ADL?s independent. Pt does not possesses any DME. Pts PCP is at the [facility]. Pharmacy of choice is [facility]. Discharge options discussed and the pt wishes to return home.? Pt family will provide transport. No further intervention required at this time, social work administrator would be available to address any further concerns. DC Plan: Home Contact: Brother Address: Confirmed on face sheet
--- NOTE | 2025-04-08 16:08 | PC.SS ---
Rounding: [facility]ST[facility] protocol, pt started on librium
[2025-04-08] MEDS: DIAZEPAM INJ 5 MG/ML VIAL 2 ML IVP (20:10)
[2025-04-09] VITALS (9 sets, daily range): BP systolic 134–151; BP diastolic 95–108; PULSE 73–102; RESP 13–97; TEMP 36.1–36.6; O2SAT 92–97
[2025-04-09 06:37] LABS: Basophils # (Auto) 0.0 Thou/mm3 (0.0-0.2); Basophils % (Auto) 1 % (0-2.5); Eosinophils # (Auto) 0.2 Thou/mm3 (0.0-0.5); Eosinophils % (Auto) 7 % (0-10); Hematocrit 36.5 % (41.0-53.0); Hemoglobin 12.9 g/dL (13.5-16.0); Immature Granulocytes Auto 0.03 Thou/mm3 (0.00-0.00); Lymphocytes # (Auto) 1.2 Thou/mm3 (1.0-4.8); Lymphocytes % (Auto) 38 % (10-50); Mean Corpuscular HGB Conc 35.3 g/dl (31.0-37.0); Mean Corpuscular Hemoglobin 31.3 pg (25.0-35.0); Mean Corpuscular Volume 89 fL (80-100); Monocytes # (Auto) 0.4 Thou/mm3 (0.0-0.8); Monocytes % (Auto) 13 % (0-12); Neutrophils # (Auto) 1.3 Thou/mm3 (1.8-7.7); Neutrophils % (Auto) 41 % (37-80); Nucleated Red Blood Cell # 0.00 Thou/mm3 (0.00-0.00); Nucleated Red Blood Cell % 0 /100 WBC (0); Platelet Count 208 Thou/mm3 (140-440); RDW Standard Deviation 41.7 fL (35.1-43.9); Red Blood Count 4.12 Miln/mm3 (4.50-5.90); White Blood Count 3.1 Thou/mm3 (3.8-10.6)
[2025-04-09 07:31] LABS: Alanine Aminotransferase 82 U/L (10-49); Albumin, Serum 4.1 gm/dL (3.5-5.0); Albumin/Globulin Ratio 1.5 (1.2-2.2); Alkaline Phosphatase 72 U/L (46-116); Anion Gap 11 (7-16); Aspartate Amino Transferase 125 U/L (0-34); BUN/Creatinine Ratio 6 Ratio (12-20); Bilirubin,Total 0.4 mg/dL (0.3-1.2); Blood Urea Nitrogen 5 mg/dL (9-23); Calcium 9.3 mg/dL (8.3-10.6); Calcium (Corrected) 9.3 mg/dL (8.5-10.1); Carbon Dioxide 27.1 mMol/L (20.0-31.0); Chloride 100 mMol/L (98-107); Creatinine (Component) 0.8 mg/dL (0.6-1.3); Estimated Creatinine Clearance 127.5 mL/min (>60); Globulin 2.7 gm/dL (2.3-3.5); Glucose 161 mg/dL (74-106); Magnesium 1.3 mg/dL (1.6-2.6); Osmolality,Calculated 275 (275-295); Phosphorous 4.3 mg/dL (2.4-5.1); Potassium 3.8 mMol/L (3.4-5.1); Sodium 138 mMol/L (136-145); Total Protein 6.8 gm/dL (5.7-8.2); eGFR > 60 See Note
[2025-04-09] MEDS: FOLIC ACID 1 MG TABLET PO (08:10)
[2025-04-09] MEDS: RINGERS LACTATED 1000 ML 1,000 ML 75 ML IV (08:10)
[2025-04-09] MEDS: THIAMINE 100 MG TABLET PO (08:10)
[2025-04-09] MEDS: ENOXAPARIN SOD INJ 40 MG/0.4 ML SYRINGE SC (08:10)
[2025-04-09] MEDS: Magnesium Sulfate 4 GM Ivpb 4 GM/50 ML BAG IV ×2 (09:43→12:14)
--- NOTE | 2025-04-09 10:02 | CHAP ---
sleeping. Prayed quietly near door.
[2025-04-09 12:31] LABS: Lipase 62 U/L (12-53)
--- NOTE | 2025-04-09 14:30 | ESPR_ITS ---
<Statement entered by Morgan Hilton MD - 04/10/25 07:47> I saw and examined patient personally and supervised PGY 1 resident, Dr. Kidd with formulating a management plan. I agree with the documentation with the exceptions as listed below. Patient CIWA score still between 8?15. On Librium 25 mg twice daily and Ativan as needed for coverage. Will reassess tomorrow. Anticipate discharge within next 24 to 48 hours. Plan of care discussed with Attending Dr. Anna Hilton MD PGY 2 Disclaimer: This note was dictated by speech recognition. Minor errors in sales support specialist may be present due to voice recognition software. Documentation for date of: 04/09/25 Subjective Subjective Interval history: Patient was seen and examined at bedside. No acute events took place overnight. Admits to difficulty sleeping, abdominal pain, nausea without vomiting, which would allow him to eat small portions of his food.? CIWA 16 late night, 5 midnight, and 11 at 4 AM.? Patient had been getting Ativan 1 mg every 4 hours and 2 mg this morning for CIWA 13. BP 140/97 1 BM, CBC and CMP ur moderately elevated LFTs Exam Vital Signs Temp Pulse Resp BP Pulse Ox O2 Del Method 97.5 F 93 18 140/97 H 97 Room Air 04/09/25 12:00 04/09/25 12:59 04/09/25 12:59 04/09/25 12:13 04/09/25 12:00 04/09/25 12:00 Narrative Exam General: A/O x3, no acute distress, well-nourished, well-developed, overweight Eyes: PERRL, EOMI. Anicteric, vision grossly intact. Ears: No ear pain, no ear discharge, hearing grossly intact. Nose: No nasal discharge. Mouth/Throat: Moist mucous membranes, no redness, no lesions. Neck: Neck supple, non-tender, no cervical lymphadenopathy. Lungs: Clear WYATT to auscultation and percussion, No accessory muscle use. Cardio: Normal S1/S2, regular rhythm, no murmurs, no JVD or carotid bruits. Abdomen: Soft, non-tender, no palpable masses, peristalsis present, no guarding or rebound. Extremities: Symmetrical, no significant deformities, no peripheral edema , non-tender, peripheral pulses present. Skin: No rashes, no lesions, warm to touch. Neuro: No focal neurological deficits. Psych: Cooperative, appropriate mood and effect. Objective Labs 04/12/25 04:25 04/12/25 04:25 Labs: Laboratory Results - last 24 hr 04/09/25 05:08 WBC 3.1 L RBC 4.12 L Hgb 12.9 L Hct 36.5 L MCV 89 MCH 31.3 MCHC 35.3 RDW Std Deviation 41.7 Plt Count 208 D Neut % (Auto) 41 Lymph % (Auto) 38 [place] % (Auto) 13 H Eos % (Auto) 7 Baso % (Auto) 1 Neut # (Auto) 1.3 L Lymph # (Auto) 1.2 [place] # (Auto) 0.4 Eos # (Auto) 0.2 Baso # (Auto) 0.0 Immature Gran # (Auto) 0.03 H Absolute Nucleated RBC 0.00 Immature Gran % 1 H Nucleated RBC % 0 Sodium 138 Potassium 3.8 D Chloride 100 Carbon Dioxide 27.1 Anion Gap 11 BUN 5 L Creatinine 0.8 Estim Creat Clear Calc 127.5 eGFR > 60 BUN/Creatinine Ratio 6 L Glucose 161 H Calculated Osmolality 275 Calcium 9.3 Corrected Calcium 9.3 Phosphorus 4.3 Magnesium 1.3 L Total Bilirubin 0.4 AST 125 H ALT 82 H Alkaline Phosphatase 72 Total Protein 6.8 Albumin 4.1 Globulin 2.7 Albumin/Globulin Ratio 1.5 Lipase 62 H ABG Interpretation ABG results: 04/06/25 19:35 VBG pH 7.45 VBG pCO2 39 VBG pO2 54 VBG Base Excess 3 Quality Measures Quality Measures VTE prophylaxis Assessment & Plan Assessment Current Active Medications: Generic Name Dose Route Start Last Admin Trade Name Freq PRN Reason Stop Dose Admin Acetaminophen 650 mg 04/07/25 19:44 04/08/25 19:04 Acetaminophen 325 Mg Tablet PO 05/07/25 19:43 650 mg Q6HR PRN Administration Fever > 100.4 or pain Chlordiazepoxide HCl 25 mg 04/09/25 14:15 04/09/25 14:20 Chlordiazepoxide Hcl 25 Mg Capsule PO 04/14/25 14:14 25 mg BID JIM Administration Dextrose 25 ml 04/06/25 21:09 Dextrose 50%-Water Inj 50 Ml Syringe IV 05/06/25 21:08 Q15MIN PRN BG 50-70 responsive npo pt Dextrose 50 ml 04/06/25 21:09 Dextrose 50%-Water Inj 50 Ml Syringe IV 05/06/25 21:08 Q15MIN PRN BG <50 OR BG <70 & pt unresponsive Diazepam 10 mg 04/06/25 21:17 Diazepam Inj 5 Mg/Ml Vial 2 Ml IVP 04/11/25 21:16 Q2HR PRN CIWA SCORE 20-25 Diazepam 10 mg 04/06/25 21:17 Diazepam Inj 5 Mg/Ml Vial 2 Ml IVP X1 PRN Breakthrough Agitation Diazepam 5 mg 04/06/25 21:17 Diazepam Inj 5 Mg/Ml Vial 2 Ml IVP X1 PRN Breakthrough Agitation Diazepam 5 mg 04/06/25 21:17 04/08/25 20:10 Diazepam Inj 5 Mg/Ml Vial 2 Ml IVP 04/11/25 21:16 5 mg Q2HR PRN Administration CIWA SCORE 15-19 Enoxaparin Sodium 40 mg 04/07/25 09:00 04/09/25 08:10 Enoxaparin Sod Inj 40 Mg/0.4 Ml Syringe SC 04/21/25 08:59 40 mg QDAY JIM Administration Folic Acid 1 mg 04/07/25 09:00 04/09/25 08:10 Folic Acid 1 Mg Tablet PO 05/07/25 08:59 1 mg QDAY JIM Administration Glucagon 1 mg 04/06/25 21:09 Glucagon Inj 1 Mg Vial IM Q15MIN PRN BG <70, and no IV access Hydromorphone HCl 0.5 mg 04/09/25 11:46 Hydromorphone Inj 2 Mg/Ml Vial IVP 04/14/25 11:45 Q4HR PRN Breakthrough Pain 9-10 Lactated Ringer's 1,000 mls @ 75 mls/hr 04/06/25 21:15 04/09/25 08:10 Lactated Ringers IV 05/06/25 21:14 75 mls/hr .[id number] JIM Administration Magnesium Sulfate 4 gm in 50 mls @ 12.5 mls/hr 04/09/25 12:30 04/09/25 12:14 Magnesium Sulfate Ivpb IV 04/09/25 16:29 12.5 mls/hr X1 ONE Administration Insulin Human Lispro 0 unit 04/07/25 07:30 04/09/25 11:12 Insulin Lispro (Admelog) 1 Unit/0.01 Ml Unit SC 05/07/25 07:29 Not Given AC JIM Protocol Labetalol HCl 10 mg 04/07/25 07:34 Labetalol Inj 5 Mg/Ml Vial 4 Ml IVP 05/07/25 07:59 Q2HR PRN SBP>180 or DBP>100 Lisinopril 40 mg 04/09/25 11:45 04/09/25 12:13 Lisinopril 20 Mg Tablet PO 05/09/25 11:44 40 mg QDAY JIM Administration Lorazepam 1 mg 04/06/25 21:17 04/09/25 12:12 Lorazepam 0.5 Mg Tablet PO 04/11/25 21:16 1 mg Q4HR PRN Administration CIWA SCORE 6-9 Lorazepam 2 mg 04/07/25 12:02 04/09/25 08:10 Lorazepam 0.5 Mg Tablet PO 04/11/25 21:16 2 mg Q4HR PRN Administration CIWA SCORE 12-15 Melatonin 6 mg 04/08/25 21:00 04/08/25 20:52 Melatonin 3 Mg Tablet PO 05/08/25 20:59 6 mg HS JIM Administration Ondansetron HCl 4 mg 04/07/25 19:45 04/08/25 19:05 Ondansetron Inj 2 Mg/Ml Inj 2 Ml IVP 05/07/25 19:44 4 mg Q6HR PRN Administration NAUSEA OR VOMITING Protocol Sennosides 1 tab 04/06/25 21:16 Senna Tablet PO 05/06/25 21:15 QDAY PRN constipation Protocol Thiamine HCl 100 mg 04/07/25 09:00 04/09/25 08:10 Thiamine 100 Mg Tablet PO 05/07/25 08:59 100 mg QDAY JIM Administration Plan Patient is 39 yo M with PMH of AUD comes to ED for abdominal pain, nausea, decreased p.o. intake, and feeling unwell all of which started a few days prior. Patient admitted for alcohol withdrawal and intractable abdominal pain. ? #Alcohol use disorder #Alcohol withdrawal Patient drank 1L vodka before previous admission. Counseled patient on EtOH use. Patient complains of difficulty sleeping, abdominal pain, nausea without vomiting, which would allow him to eat small portions of his food. There are moderate tremors on exam. ? Plan: Librium 25 BID Folate/ Thiamine supplementation Continue AUD counseling Social referral ? #NSTEMI #Hypertensive emergency #Elevated CK End organ damage confirmed by elevated troponin (0.051 peak, 0.046 last). CK 294 on admission. EKG negative for T wave/ ST changes. ? Plan: Resumed home lisinopril 40mg Qday ? #Diverticulosis #Intractable abdominal pain Patient still having abdominal pain. Fatty liver on ultrasound. Lipase 62 ? Plan: Pain management Zofran IVP 4mg Q6h ? #Leukopenia WBC 3.6 on admission. 2.3 today. ? Plan: Continue to trend ? Disposition: Med-Tele DVT prophylaxis: Lovenox 40 qday GI prophylaxis: Diet: regular Lines: PIV CODE STATUS: Full This case was discussed with my attending physician, Dr. Castillo, and senior resident, Dr Hilton. Even though this this note was carefully revised there may still be minor errors in sales support specialist due to voice recognition software. Flaquito Kidd, DO PGY I ? Attending Provider Attestation/Addendum Patient was seen and examined.Continue Librium for alcohol withdrawal.No seizure reported, He has abdominal pain probably from fatty liver. Check for distension routinely. He is not febrile and not septic appearing. He will receive magnesium replacement. discussed with housestaff.
--- NOTE | 2025-04-09 15:14 | PC.SS ---
[place]-2 days of monitoring, [facility] protocol
[2025-04-09] MEDS: MELATONIN 3 MG TABLET 6 MG PO (20:14)
[2025-04-09] MEDS: INSULIN LISPRO (AdmeLOG) 1 UNIT/0.01 ML UNIT SC (20:36)
[2025-04-09] MEDS: ONDANSETRON INJ 2 MG/ML INJ 2 ML 4 MG IVP (23:46)
[2025-04-10] VITALS (8 sets, daily range): BP systolic 114–148; BP diastolic 78–108; PULSE 74–100; RESP 15–98; TEMP 36.1–36.4; O2SAT 95–98; BMI 29.2
[2025-04-10] MEDS: DIAZEPAM INJ 5 MG/ML VIAL 2 ML IVP ×2 (03:53→20:01)
[2025-04-10] MEDS: RINGERS LACTATED 1000 ML 1,000 ML 75 ML IV ×2 (04:18→17:50)
[2025-04-10 05:44] LABS: Basophils # (Auto) 0.0 Thou/mm3 (0.0-0.2); Basophils % (Auto) 1 % (0-2.5); Eosinophils # (Auto) 0.2 Thou/mm3 (0.0-0.5); Eosinophils % (Auto) 6 % (0-10); Hematocrit 36.0 % (41.0-53.0); Hemoglobin 12.6 g/dL (13.5-16.0); Immature Granulocytes Auto 0.04 Thou/mm3 (0.00-0.00); Lymphocytes # (Auto) 1.5 Thou/mm3 (1.0-4.8); Lymphocytes % (Auto) 40 % (10-50); Mean Corpuscular HGB Conc 35.0 g/dl (31.0-37.0); Mean Corpuscular Hemoglobin 31.2 pg (25.0-35.0); Mean Corpuscular Volume 89 fL (80-100); Monocytes # (Auto) 0.5 Thou/mm3 (0.0-0.8); Monocytes % (Auto) 13 % (0-12); Neutrophils # (Auto) 1.4 Thou/mm3 (1.8-7.7); Neutrophils % (Auto) 38 % (37-80); Nucleated Red Blood Cell # 0.00 Thou/mm3 (0.00-0.00); Nucleated Red Blood Cell % 0 /100 WBC (0); Platelet Count 208 Thou/mm3 (140-440); RDW Standard Deviation 42.5 fL (35.1-43.9); Red Blood Count 4.04 Miln/mm3 (4.50-5.90); White Blood Count 3.6 Thou/mm3 (3.8-10.6)
[2025-04-10 06:32] LABS: Alanine Aminotransferase 77 U/L (10-49); Albumin, Serum 3.9 gm/dL (3.5-5.0); Albumin/Globulin Ratio 1.5 (1.2-2.2); Alkaline Phosphatase 70 U/L (46-116); Anion Gap 9 (7-16); Aspartate Amino Transferase 78 U/L (0-34); BUN/Creatinine Ratio 9 Ratio (12-20); Bilirubin,Total 0.4 mg/dL (0.3-1.2); Blood Urea Nitrogen 7 mg/dL (9-23); Calcium 8.7 mg/dL (8.3-10.6); Calcium (Corrected) 8.8 mg/dL (8.5-10.1); Carbon Dioxide 27.4 mMol/L (20.0-31.0); Chloride 101 mMol/L (98-107); Creatinine (Component) 0.8 mg/dL (0.6-1.3); Estimated Creatinine Clearance 127.5 mL/min (>60); Globulin 2.6 gm/dL (2.3-3.5); Glucose 205 mg/dL (74-106); Magnesium 1.6 mg/dL (1.6-2.6); Osmolality,Calculated 277 (275-295); Phosphorous 3.9 mg/dL (2.4-5.1); Potassium 4.0 mMol/L (3.4-5.1); Sodium 137 mMol/L (136-145); Total Protein 6.5 gm/dL (5.7-8.2); eGFR > 60 See Note
[2025-04-10] MEDS: ENOXAPARIN SOD INJ 40 MG/0.4 ML SYRINGE SC (08:56)
[2025-04-10] MEDS: FOLIC ACID 1 MG TABLET PO (08:57)
[2025-04-10] MEDS: THIAMINE 100 MG TABLET PO (08:57)
[2025-04-10] MEDS: ONDANSETRON INJ 2 MG/ML INJ 2 ML 4 MG IVP (15:58)
--- NOTE | 2025-04-10 16:27 | ESPR_ITS ---
<Statement entered by Morgan Hilton MD - 04/10/25 22:26> I saw and examined patient personally and supervised PGY 1 resident, Dr. Kidd with formulating a management plan. I agree with the documentation with the exceptions as listed below. Patient CIWA score was elevated at 17 this a.m. LFTs also downtrended. Increased Librium to 25 mg p.o. 3 times daily from twice daily. Will monitor for improvement of CIWA tomorrow anticipate discharge within next 24 to 48 hours. Plan of care discussed with Attending Dr. Oswald Hilton MD PGY 2 Disclaimer: This note was dictated by speech recognition. Minor errors in real estate sales manager may be present due to voice recognition software. Documentation for date of: 04/10/25 Subjective Subjective Interval history: Patient was seen and examined at bedside. No acute events took place overnight. Admits to difficulty sleeping, abdominal pain, nausea without vomiting, which would allow him to eat small portions of his food.? Also admits to occipital headache, and dizziness. Small BM. CIWA 11-16, Ativan 1-2mg Q4h and diazepam 5mg (for CIWA 16) Labs remarkable for glc 205 (this AM) and HgbA1c 7.6, and LFTs which have downtrended. Insulin 1u Exam Vital Signs Temp Pulse Resp BP Pulse Ox O2 Del Method 97.4 F 80 18 148/108 H 98 Room Air 04/10/25 12:00 04/10/25 12:00 04/10/25 12:00 04/10/25 12:00 04/10/25 12:00 04/10/25 12:00 Narrative Exam General: A/O x3, no acute distress, well-nourished, well-developed, overweight Eyes: PERRL, EOMI. Anicteric, vision grossly intact. Ears: No ear pain, no ear discharge, hearing grossly intact. Nose: No nasal discharge. Mouth/Throat: Moist mucous membranes, no redness, no lesions. Neck: Neck supple, non-tender, no cervical lymphadenopathy. Lungs: Clear WYATT to auscultation and percussion, No accessory muscle use. Cardio: Normal S1/S2, regular rhythm, no murmurs, no JVD or carotid bruits. Abdomen: Soft, non-tender, no palpable masses, peristalsis present, no guarding or rebound. Extremities: Symmetrical, no significant deformities, no peripheral edema , non-tender, peripheral pulses present. Skin: No rashes, no lesions, warm to touch. Neuro: No focal neurological deficits. Psych: Cooperative, appropriate mood and effect. Objective Labs 04/10/25 05:14 04/10/25 05:14 Labs: Laboratory Results - last 24 hr 04/10/25 05:14 WBC 3.6 L RBC 4.04 L Hgb 12.6 L Hct 36.0 L MCV 89 MCH 31.2 MCHC 35.0 RDW Std Deviation 42.5 Plt Count 208 Neut % (Auto) 38 Lymph % (Auto) 40 [place] % (Auto) 13 H Eos % (Auto) 6 Baso % (Auto) 1 Neut # (Auto) 1.4 L Lymph # (Auto) 1.5 [place] # (Auto) 0.5 Eos # (Auto) 0.2 Baso # (Auto) 0.0 Immature Gran # (Auto) 0.04 H Absolute Nucleated RBC 0.00 Immature Gran % 1 H Nucleated RBC % 0 Sodium 137 Potassium 4.0 Chloride 101 Carbon Dioxide 27.4 Anion Gap 9 BUN 7 L Creatinine 0.8 Estim Creat Clear Calc 127.5 eGFR > 60 BUN/Creatinine Ratio 9 L Glucose 205 H Calculated Osmolality 277 Calcium 8.7 Corrected Calcium 8.8 Phosphorus 3.9 Magnesium 1.6 Total Bilirubin 0.4 AST 78 H ALT 77 H Alkaline Phosphatase 70 Total Protein 6.5 Albumin 3.9 Globulin 2.6 Albumin/Globulin Ratio 1.5 ABG Interpretation ABG results: 04/06/25 19:35 VBG pH 7.45 VBG pCO2 39 VBG pO2 54 VBG Base Excess 3 Quality Measures Quality Measures VTE prophylaxis Assessment & Plan Assessment Current Active Medications: Generic Name Dose Route Start Last Admin Trade Name Freq PRN Reason Stop Dose Admin Acetaminophen 650 mg 04/07/25 19:44 04/08/25 19:04 Acetaminophen 325 Mg Tablet PO 05/07/25 19:43 650 mg Q6HR PRN Administration Fever > 100.4 or pain Chlordiazepoxide HCl 25 mg 04/09/25 14:15 04/10/25 08:57 Chlordiazepoxide Hcl 25 Mg Capsule PO 04/14/25 14:14 25 mg BID JIM Administration Dextrose 25 ml 04/06/25 21:09 Dextrose 50%-Water Inj 50 Ml Syringe IV 05/06/25 21:08 Q15MIN PRN BG 50-70 responsive npo pt Dextrose 50 ml 04/06/25 21:09 Dextrose 50%-Water Inj 50 Ml Syringe IV 05/06/25 21:08 Q15MIN PRN BG <50 OR BG <70 & pt unresponsive Diazepam 10 mg 04/06/25 21:17 Diazepam Inj 5 Mg/Ml Vial 2 Ml IVP 04/11/25 21:16 Q2HR PRN CIWA SCORE 20-25 Diazepam 10 mg 04/06/25 21:17 Diazepam Inj 5 Mg/Ml Vial 2 Ml IVP X1 PRN Breakthrough Agitation Diazepam 5 mg 04/06/25 21:17 Diazepam Inj 5 Mg/Ml Vial 2 Ml IVP X1 PRN Breakthrough Agitation Diazepam 5 mg 04/10/25 09:21 Diazepam Inj 5 Mg/Ml Vial 2 Ml IVP 04/11/25 21:16 Q2HR PRN CIWA SCORE 16-19 Enoxaparin Sodium 40 mg 04/07/25 09:00 04/10/25 08:56 Enoxaparin Sod Inj 40 Mg/0.4 Ml Syringe SC 04/21/25 08:59 40 mg QDAY JIM Administration Folic Acid 1 mg 04/07/25 09:00 04/10/25 08:57 Folic Acid 1 Mg Tablet PO 05/07/25 08:59 1 mg QDAY JIM Administration Glucagon 1 mg 04/06/25 21:09 Glucagon Inj 1 Mg Vial IM Q15MIN PRN BG <70, and no IV access Hydromorphone HCl 0.5 mg 04/09/25 11:46 Hydromorphone Inj 2 Mg/Ml Vial IVP 04/14/25 11:45 Q4HR PRN Breakthrough Pain 9-10 Lactated Ringer's 1,000 mls @ 75 mls/hr 04/06/25 21:15 04/10/25 04:18 Lactated Ringers IV 05/06/25 21:14 75 mls/hr .[id number] JIM Administration Insulin Human Lispro 0 unit 04/09/25 20:30 04/09/25 20:36 Insulin Lispro (Admelog) 1 Unit/0.01 Ml Unit SC 05/09/25 20:29 1 unit ACHS JIM Administration Protocol Labetalol HCl 10 mg 04/07/25 07:34 Labetalol Inj 5 Mg/Ml Vial 4 Ml IVP 05/07/25 07:59 Q2HR PRN SBP>180 or DBP>100 Lisinopril 40 mg 04/09/25 11:45 04/10/25 08:57 Lisinopril 20 Mg Tablet PO 05/09/25 11:44 40 mg QDAY JIM Administration Lorazepam 2 mg 04/07/25 12:02 04/10/25 15:58 Lorazepam 0.5 Mg Tablet PO 04/11/25 21:16 2 mg Q4HR PRN Administration CIWA SCORE 12-15 Lorazepam 1 mg 04/10/25 09:19 Lorazepam 0.5 Mg Tablet PO 04/11/25 21:16 Q4HR PRN CIWA SCORE 6-11 Melatonin 6 mg 04/08/25 21:00 04/09/25 20:14 Melatonin 3 Mg Tablet PO 05/08/25 20:59 6 mg HS JIM Administration Ondansetron HCl 4 mg 04/07/25 19:45 04/10/25 15:58 Ondansetron Inj 2 Mg/Ml Inj 2 Ml IVP 05/07/25 19:44 4 mg Q6HR PRN Administration NAUSEA OR VOMITING Protocol Sennosides 1 tab 04/06/25 21:16 Senna Tablet PO 05/06/25 21:15 QDAY PRN constipation Protocol Thiamine HCl 100 mg 04/07/25 09:00 04/10/25 08:57 Thiamine 100 Mg Tablet PO 05/07/25 08:59 100 mg QDAY JIM Administration Plan Patient is 39 yo M with PMH of AUD comes to ED for abdominal pain, nausea, decreased p.o. intake, and feeling unwell all of which started a few days prior. Patient admitted for alcohol withdrawal and intractable abdominal pain. ? #Alcohol use disorder #Alcohol withdrawal Patient drank 1L vodka before previous admission. Counseled patient on EtOH use. Patient complains of difficulty sleeping, abdominal pain, nausea without vomiting, which would allow him to eat small portions of his food. There are moderate tremors on exam. ? Plan: Librium 25 TID (from BID) as LFT's improved. Folate/ Thiamine supplementation Continue AUD counseling Social referral #Hypertension, stage II #NSTEMI Type II vs I End organ damage confirmed by elevated troponin (0.051 peak, 0.046 last). CK 294 on admission. EKG negative for T wave/ ST changes. Plan: Resumed home lisinopril 40mg Qday ? #Diverticulosis #Intractable abdominal pain Patient still having abdominal pain. Fatty liver on ultrasound. Lipase 62 ? Plan: Pain management Zofran IVP 4mg Q6h ? #Leukopenia WBC 3.6 on admission. 2.3 today. ? Plan: Continue to trend ? Disposition: Med-Tele DVT prophylaxis: Lovenox 40 qday GI prophylaxis: Diet: regular Lines: PIV CODE STATUS: Full This case was discussed with my attending physician, Dr. Akers, and senior resident, Dr Hilton. Even though this this note was carefully revised there may still be minor errors in real estate sales manager due to voice recognition software. Flaquito Kidd, DO PGY I ? Attending Provider Attestation/Addendum I have discussed and was present for the essential components of the history, physical examination, diagnosis, and treatment plan with the resident. I agree with the patient's care as documented by the resident and amended herein by me. Blaine Akers DO. Although this document has been carefully reviewed, there may still be some phonetic and other typographical errors. These errors are purely grammatical due to imperfections in the software program and should not be construed in any way to compromise the substance of the patient's medical care during this visit.
[2025-04-10] MEDS: MELATONIN 3 MG TABLET 6 MG PO (20:01)
[2025-04-10] MEDS: INSULIN LISPRO (AdmeLOG) 1 UNIT/0.01 ML UNIT SC (20:07)
[2025-04-11] VITALS (10 sets, daily range): BP systolic 124–155; BP diastolic 78–103; PULSE 72–108; RESP 17–20; TEMP 36.3–36.9; O2SAT 95–98
[2025-04-11] MEDS: ONDANSETRON INJ 2 MG/ML INJ 2 ML 4 MG IVP ×2 (04:58→15:06)
[2025-04-11 06:16] LABS: Basophils # (Auto) 0.0 Thou/mm3 (0.0-0.2); Basophils % (Auto) 1 % (0-2.5); Eosinophils # (Auto) 0.2 Thou/mm3 (0.0-0.5); Eosinophils % (Auto) 4 % (0-10); Hematocrit 38.3 % (41.0-53.0); Hemoglobin 13.1 g/dL (13.5-16.0); Immature Granulocytes Auto 0.05 Thou/mm3 (0.00-0.00); Lymphocytes # (Auto) 1.7 Thou/mm3 (1.0-4.8); Lymphocytes % (Auto) 36 % (10-50); Mean Corpuscular HGB Conc 34.2 g/dl (31.0-37.0); Mean Corpuscular Hemoglobin 30.9 pg (25.0-35.0); Mean Corpuscular Volume 90 fL (80-100); Monocytes # (Auto) 0.5 Thou/mm3 (0.0-0.8); Monocytes % (Auto) 12 % (0-12); Neutrophils # (Auto) 2.1 Thou/mm3 (1.8-7.7); Neutrophils % (Auto) 46 % (37-80); Nucleated Red Blood Cell # 0.00 Thou/mm3 (0.00-0.00); Nucleated Red Blood Cell % 0 /100 WBC (0); Platelet Count 169 Thou/mm3 (140-440); RDW Standard Deviation 43.6 fL (35.1-43.9); Red Blood Count 4.24 Miln/mm3 (4.50-5.90); White Blood Count 4.6 Thou/mm3 (3.8-10.6)
[2025-04-11 06:38] LABS: Alanine Aminotransferase 76 U/L (10-49); Albumin, Serum 4.1 gm/dL (3.5-5.0); Albumin/Globulin Ratio 1.5 (1.2-2.2); Alkaline Phosphatase 69 U/L (46-116); Anion Gap 12 (7-16); Aspartate Amino Transferase 70 U/L (0-34); BUN/Creatinine Ratio 6 Ratio (12-20); Bilirubin,Total 0.4 mg/dL (0.3-1.2); Blood Urea Nitrogen 5 mg/dL (9-23); Calcium 9.0 mg/dL (8.3-10.6); Calcium (Corrected) 9.0 mg/dL (8.5-10.1); Carbon Dioxide 26.2 mMol/L (20.0-31.0); Chloride 101 mMol/L (98-107); Creatinine (Component) 0.8 mg/dL (0.6-1.3); Estimated Creatinine Clearance 127.5 mL/min (>60); Globulin 2.8 gm/dL (2.3-3.5); Glucose 152 mg/dL (74-106); Magnesium 1.3 mg/dL (1.6-2.6); Osmolality,Calculated 277 (275-295); Phosphorous 3.9 mg/dL (2.4-5.1); Potassium 4.4 mMol/L (3.4-5.1); Sodium 139 mMol/L (136-145); Total Protein 6.9 gm/dL (5.7-8.2); eGFR > 60 See Note
[2025-04-11] MEDS: FOLIC ACID 1 MG TABLET PO (08:57)
[2025-04-11] MEDS: RINGERS LACTATED 1000 ML 1,000 ML 75 ML IV (08:57)
[2025-04-11] MEDS: ENOXAPARIN SOD INJ 40 MG/0.4 ML SYRINGE SC (08:58)
[2025-04-11] MEDS: THIAMINE 100 MG TABLET PO (08:58)
[2025-04-11] MEDS: ACETAMINOPHEN 325 MG TABLET 650 MG PO (09:02)
--- NOTE | 2025-04-11 10:13 | ESPR_ITS ---
<Statement entered by Morgan Hilton MD - 04/11/25 16:50> I saw and examined patient personally and supervised PGY 1 resident, Dr. Kidd with formulating a management plan. I agree with the documentation with the exceptions as listed below. Patient CIWA was elevated at 16 overnight. Weaned Librium to 25 mg p.o. twice daily. Will continue to monitor CIWA score and discharge once improved. Plan of care discussed with Attending Dr. Oswald Hilton MD PGY 2 Disclaimer: This note was dictated by speech recognition. Minor errors in industrial illuminating engineer may be present due to voice recognition software. Documentation for date of: 04/11/25 Subjective Subjective Interval history: Patient was seen and examined at bedside. No acute events took place overnight. Admits to difficulty sleeping, abdominal pain, nausea without vomiting, which would allow him to eat small portions of his food.? Also admits to occipital headache, and dizziness, and constipation. Small BM. CIWA 16 at night, given diazepam 5 mg. 0 at midnight. CIWA 5 at 5 AM and patient received lorazepam 1 mg. VSS WNL, Mg 1.3 (R) Exam Vital Signs Temp Pulse Resp BP Pulse Ox O2 Del Method 97.9 F 98 18 139/102 H 98 Room Air 04/11/25 08:00 04/11/25 08:57 04/11/25 08:00 04/11/25 08:57 04/11/25 08:00 04/11/25 08:00 Narrative Exam General: A/O x3, no acute distress, well-nourished, well-developed, overweight Eyes: PERRL, EOMI. Anicteric, vision grossly intact. Ears: No ear pain, no ear discharge, hearing grossly intact. Nose: No nasal discharge. Mouth/Throat: Moist mucous membranes, no redness, no lesions. Neck: Neck supple, non-tender, no cervical lymphadenopathy. Lungs: Clear WYATT to auscultation and percussion, No accessory muscle use. Cardio: Normal S1/S2, regular rhythm, no murmurs, no JVD or carotid bruits. Abdomen: Soft, abdominal tenderness in the right hypochondriac and mid flank region. Peristalsis present, no guarding or rebound. Decreased bowel sounds. No rebound. Extremities: Symmetrical, no significant deformities, no peripheral edema , non-tender, peripheral pulses present. Skin: No rashes, no lesions, warm to touch. Neuro: No focal neurological deficits. Psych: Cooperative, appropriate mood and effect. Objective Labs 04/12/25 04:25 04/12/25 04:25 Labs: Laboratory Results - last 24 hr 04/11/25 05:35 WBC 4.6 RBC 4.24 L Hgb 13.1 L Hct 38.3 L MCV 90 MCH 30.9 MCHC 34.2 RDW Std Deviation 43.6 Plt Count 169 D Neut % (Auto) 46 Lymph % (Auto) 36 [place] % (Auto) 12 Eos % (Auto) 4 Baso % (Auto) 1 Neut # (Auto) 2.1 Lymph # (Auto) 1.7 [place] # (Auto) 0.5 Eos # (Auto) 0.2 Baso # (Auto) 0.0 Immature Gran # (Auto) 0.05 H Absolute Nucleated RBC 0.00 Immature Gran % 1 H Nucleated RBC % 0 Sodium 139 Potassium 4.4 Chloride 101 Carbon Dioxide 26.2 Anion Gap 12 BUN 5 L Creatinine 0.8 Estim Creat Clear Calc 127.5 eGFR > 60 BUN/Creatinine Ratio 6 L Glucose 152 H D Calculated Osmolality 277 Calcium 9.0 Corrected Calcium 9.0 Phosphorus 3.9 Magnesium 1.3 L Total Bilirubin 0.4 AST 70 H ALT 76 H Alkaline Phosphatase 69 Total Protein 6.9 Albumin 4.1 Globulin 2.8 Albumin/Globulin Ratio 1.5 ABG Interpretation ABG results: 04/06/25 19:35 VBG pH 7.45 VBG pCO2 39 VBG pO2 54 VBG Base Excess 3 Quality Measures Quality Measures VTE prophylaxis Assessment & Plan Assessment Current Active Medications: Generic Name Dose Route Start Last Admin Trade Name Freq PRN Reason Stop Dose Admin Acetaminophen 650 mg 04/07/25 19:44 04/11/25 09:02 Acetaminophen 325 Mg Tablet PO 05/07/25 19:43 650 mg Q6HR PRN Administration Fever > 100.4 or pain Chlordiazepoxide HCl 25 mg 04/09/25 14:15 04/11/25 08:57 Chlordiazepoxide Hcl 25 Mg Capsule PO 04/14/25 14:14 25 mg BID JIM Administration Dextrose 25 ml 04/06/25 21:09 Dextrose 50%-Water Inj 50 Ml Syringe IV 05/06/25 21:08 Q15MIN PRN BG 50-70 responsive npo pt Dextrose 50 ml 04/06/25 21:09 Dextrose 50%-Water Inj 50 Ml Syringe IV 05/06/25 21:08 Q15MIN PRN BG <50 OR BG <70 & pt unresponsive Diazepam 10 mg 04/06/25 21:17 Diazepam Inj 5 Mg/Ml Vial 2 Ml IVP 04/11/25 21:16 Q2HR PRN CIWA SCORE 20-25 Diazepam 10 mg 04/06/25 21:17 Diazepam Inj 5 Mg/Ml Vial 2 Ml IVP X1 PRN Breakthrough Agitation Diazepam 5 mg 04/06/25 21:17 Diazepam Inj 5 Mg/Ml Vial 2 Ml IVP X1 PRN Breakthrough Agitation Diazepam 5 mg 04/10/25 09:21 04/10/25 20:01 Diazepam Inj 5 Mg/Ml Vial 2 Ml IVP 04/11/25 21:16 5 mg Q2HR PRN Administration CIWA SCORE 16-19 Enoxaparin Sodium 40 mg 04/07/25 09:00 04/11/25 08:58 Enoxaparin Sod Inj 40 Mg/0.4 Ml Syringe SC 04/21/25 08:59 40 mg QDAY JIM Administration Folic Acid 1 mg 04/07/25 09:00 04/11/25 08:57 Folic Acid 1 Mg Tablet PO 05/07/25 08:59 1 mg QDAY JIM Administration Glucagon 1 mg 04/06/25 21:09 Glucagon Inj 1 Mg Vial IM Q15MIN PRN BG <70, and no IV access Hydromorphone HCl 0.5 mg 04/09/25 11:46 Hydromorphone Inj 2 Mg/Ml Vial IVP 04/14/25 11:45 Q4HR PRN Breakthrough Pain 9-10 Lactated Ringer's 1,000 mls @ 75 mls/hr 04/06/25 21:15 04/11/25 08:57 Lactated Ringers IV 05/06/25 21:14 75 mls/hr .[id number] JIM Administration Magnesium Sulfate 4 gm in 50 mls @ 12.5 mls/hr 04/11/25 09:01 Magnesium Sulfate Ivpb IV 04/11/25 13:00 X1 ONE Insulin Human Lispro 0 unit 04/11/25 08:59 Insulin Lispro (Admelog) 1 Unit/0.01 Ml Unit SC 05/10/25 16:59 ACHS JIM Protocol Labetalol HCl 10 mg 04/07/25 07:34 Labetalol Inj 5 Mg/Ml Vial 4 Ml IVP 05/07/25 07:59 Q2HR PRN SBP>180 or DBP>100 Lisinopril 40 mg 04/09/25 11:45 04/11/25 08:57 Lisinopril 20 Mg Tablet PO 05/09/25 11:44 40 mg QDAY JIM Administration Lorazepam 2 mg 04/07/25 12:02 04/10/25 15:58 Lorazepam 0.5 Mg Tablet PO 04/11/25 21:16 2 mg Q4HR PRN Administration CIWA SCORE 12-15 Lorazepam 1 mg 04/10/25 09:19 04/11/25 09:02 Lorazepam 0.5 Mg Tablet PO 04/11/25 21:16 1 mg Q4HR PRN Administration CIWA SCORE 6-11 Melatonin 6 mg 04/08/25 21:00 04/10/25 20:01 Melatonin 3 Mg Tablet PO 05/08/25 20:59 6 mg HS JIM Administration Ondansetron HCl 4 mg 04/07/25 19:45 04/11/25 04:58 Ondansetron Inj 2 Mg/Ml Inj 2 Ml IVP 05/07/25 19:44 4 mg Q6HR PRN Administration NAUSEA OR VOMITING Protocol Sennosides 1 tab 04/06/25 21:16 04/10/25 22:05 Senna Tablet PO 05/06/25 21:15 1 tab QDAY PRN Administration constipation Protocol Thiamine HCl 100 mg 04/07/25 09:00 04/11/25 08:58 Thiamine 100 Mg Tablet PO 05/07/25 08:59 100 mg QDAY JIM Administration Plan Patient is 39 yo M with PMH of AUD comes to ED for abdominal pain, nausea, decreased p.o. intake, and feeling unwell all of which started a few days prior. Patient admitted for alcohol withdrawal and intractable abdominal pain. ? #Alcohol use disorder #Alcohol withdrawal Patient drank 1L vodka before previous admission. Counseled patient on EtOH use. Patient complains of difficulty sleeping, abdominal pain, nausea without vomiting, which would allow him to eat small portions of his food. There are moderate tremors on exam. ? Plan: Librium 25 BID in the light of improved CIWA scores. Folate/ Thiamine supplementation Continue AUD counseling Social referral #Hypertension, stage II #NSTEMI Type II vs I End organ damage confirmed by elevated troponin (0.051 peak, 0.046 last). CK 294 on admission. EKG negative for T wave/ ST changes. Plan: Resumed home lisinopril 40mg Qday ? #Diverticulosis #Intractable abdominal pain Patient still having abdominal pain. Fatty liver on ultrasound. Lipase 62 ? Plan: Pain management Zofran IVP 4mg Q6h ? #Leukopenia, improved WBC 3.6 on admission. 4.6 today. ? Plan: Continue to trend ? Disposition: Med-Tele DVT prophylaxis: Lovenox 40 qday GI prophylaxis: Diet: regular Lines: PIV CODE STATUS: Full This case was discussed with my attending physician, Dr. Akers, and senior resident, Dr Hilton. Even though this this note was carefully revised there may still be minor errors in industrial illuminating engineer due to voice recognition software. Flaquito Kidd, DO PGY I ? Attending Provider Attestation/Addendum I have discussed and was present for the essential components of the history, physical examination, diagnosis, and treatment plan with the resident. I agree with the patient's care as documented by the resident and amended herein by me. Blaine Akers, . Although this document has been carefully reviewed, there may still be some phonetic and other typographical errors. These errors are purely grammatical due to imperfections in the software program and should not be construed in any way to compromise the substance of the patient's medical care during this visit.
[2025-04-11] MEDS: Magnesium Sulfate 4 GM Ivpb 4 GM/50 ML BAG IV (10:54)
[2025-04-11 12:17] LABS: Ammonia 20 uMol/L (11-32)
[2025-04-11] MEDS: INSULIN LISPRO (AdmeLOG) 1 UNIT/0.01 ML UNIT SC ×3 (12:33→20:35)
--- NOTE | 2025-04-11 15:00 | PC.SS ---
Follow up note: Pt is still on CWAL protocol.
[2025-04-11] MEDS: DIAZEPAM INJ 5 MG/ML VIAL 2 ML IVP (15:57)
--- NOTE | 2025-04-11 16:13 | PC.SS ---
SS met with pt and provided him with [facility]. Pt states he has stopped consuming alcohol for 8 years and was attending AA meetings in the past. Pt was not feeling well and was requesting speak with his bedside nurse. Pt states he is able to stop consuming alcohol and is going to attend AA meetings again.
[2025-04-11] MEDS: MELATONIN 3 MG TABLET 6 MG PO (20:36)
[2025-04-12] VITALS (9 sets, daily range): BP systolic 123–154; BP diastolic 84–103; PULSE 68–101; RESP 15–19; TEMP 36–37.2; O2SAT 96–98
[2025-04-12] MEDS: HYDROmorphone INJ 2 MG/ML VIAL 0.5 MG IVP (00:25)
[2025-04-12] MEDS: RINGERS LACTATED 1000 ML 1,000 ML 75 ML IV (04:06)
[2025-04-12 05:34] LABS: Basophils # (Auto) 0.0 Thou/mm3 (0.0-0.2); Basophils % (Auto) 1 % (0-2.5); Eosinophils # (Auto) 0.2 Thou/mm3 (0.0-0.5); Eosinophils % (Auto) 4 % (0-10); Hematocrit 38.9 % (41.0-53.0); Hemoglobin 13.7 g/dL (13.5-16.0); Immature Granulocytes Auto 0.06 Thou/mm3 (0.00-0.00); Lymphocytes # (Auto) 1.8 Thou/mm3 (1.0-4.8); Lymphocytes % (Auto) 41 % (10-50); Mean Corpuscular HGB Conc 35.2 g/dl (31.0-37.0); Mean Corpuscular Hemoglobin 31.1 pg (25.0-35.0); Mean Corpuscular Volume 88 fL (80-100); Monocytes # (Auto) 0.6 Thou/mm3 (0.0-0.8); Monocytes % (Auto) 14 % (0-12); Neutrophils # (Auto) 1.7 Thou/mm3 (1.8-7.7); Neutrophils % (Auto) 39 % (37-80); Nucleated Red Blood Cell # 0.00 Thou/mm3 (0.00-0.00); Nucleated Red Blood Cell % 0 /100 WBC (0); Platelet Count 250 Thou/mm3 (140-440); RDW Standard Deviation 43.4 fL (35.1-43.9); Red Blood Count 4.41 Miln/mm3 (4.50-5.90); White Blood Count 4.3 Thou/mm3 (3.8-10.6)
[2025-04-12 06:11] LABS: Alanine Aminotransferase 81 U/L (10-49); Albumin, Serum 4.4 gm/dL (3.5-5.0); Albumin/Globulin Ratio 1.5 (1.2-2.2); Alkaline Phosphatase 69 U/L (46-116); Anion Gap 11 (7-16); Aspartate Amino Transferase 63 U/L (0-34); BUN/Creatinine Ratio 13 Ratio (12-20); Bilirubin,Total 0.4 mg/dL (0.3-1.2); Blood Urea Nitrogen 10 mg/dL (9-23); Calcium 9.5 mg/dL (8.3-10.6); Calcium (Corrected) 9.5 mg/dL (8.5-10.1); Carbon Dioxide 26.9 mMol/L (20.0-31.0); Chloride 100 mMol/L (98-107); Creatinine (Component) 0.8 mg/dL (0.6-1.3); Estimated Creatinine Clearance 127.5 mL/min (>60); Globulin 2.9 gm/dL (2.3-3.5); Glucose 162 mg/dL (74-106); Magnesium 1.3 mg/dL (1.6-2.6); Osmolality,Calculated 278 (275-295); Phosphorous 4.3 mg/dL (2.4-5.1); Potassium 4.1 mMol/L (3.4-5.1); Sodium 138 mMol/L (136-145); Total Protein 7.3 gm/dL (5.7-8.2); eGFR > 60 See Note
[2025-04-12] MEDS: THIAMINE 100 MG TABLET PO (09:10)
[2025-04-12] MEDS: FOLIC ACID 1 MG TABLET PO (09:10)
[2025-04-12] MEDS: INSULIN DEGLUDEC 5 UNIT/0.05 ML (PER 5 UNITS) 8 UNIT SC (09:11)
[2025-04-12] MEDS: ENOXAPARIN SOD INJ 40 MG/0.4 ML SYRINGE SC (09:11)
[2025-04-12] MEDS: LACTULOSE SYRUP 20 GM/30 ML UDC PO (12:31)
[2025-04-12] MEDS: MAGNESIUM OXIDE 400 MG TABLET PO (12:31)
[2025-04-12] MEDS: Magnesium Sulfate 4 GM Ivpb 4 GM/50 ML BAG IV ×2 (12:31→17:10)
[2025-04-12] MEDS: INSULIN LISPRO (AdmeLOG) 1 UNIT/0.01 ML UNIT SC ×3 (12:32→20:21)
--- NOTE | 2025-04-12 14:02 | ESPR_ITS ---
<Statement entered by Morgan Hilton MD - 04/12/25 15:18> I saw and examined patient personally and supervised PGY 1 resident, Dr. Kidd with formulating a management plan. I agree with the documentation with the exceptions as listed below. Patient's CIWA was elevated at 8 overnight and he received lorazepam 0.5 mg as per CIWA protocol. This morning he still appears tremulous. Decreased his dose of as needed Ativan to 0.25, 0.5 and 1 mg respectively. Will keep for 1 more day to monitor for improvement of his withdrawal. Plan of care discussed with Attending Dr. Cedric Hilton MD PGY 2 Disclaimer: This note was dictated by speech recognition. Minor errors in middle school counselor may be present due to voice recognition software. Documentation for date of: 04/12/25 Subjective Subjective Interval history: Patient was seen and examined at bedside. No acute events took place overnight. Admits to difficulty sleeping, abdominal pain, nausea with minimal vomiting, also admits to occipital headache, and dizziness, and constipation. Present subtle tremers, Lt >Rt. Small BM. Patient able to eat his meals fully, however. Patient points to abdominal discomfort, with a focus at the left upper quadrant, worse with palpation. There is fullness appreciated on palpation of the sigmoid area. CIWA 10 at night and CIWA 6 in AM. Patient has been getting lorazepam according to calculated score, 0.5 and 1mg. VSS BP 154/103 CBC ur, CMP Mg 1.3 (+40mEq PO) Exam Vital Signs Temp Pulse Resp BP Pulse Ox O2 Del Method 98.3 F 80 17 141/98 H 96 Room Air 04/12/25 12:24 04/12/25 12:24 04/12/25 12:24 04/12/25 12:24 04/12/25 12:24 04/12/25 12:24 Narrative Exam General: A/O x3, no acute distress, well-nourished, well-developed, overweight Eyes: PERRL, EOMI. Anicteric, vision grossly intact. Ears: No ear pain, no ear discharge, hearing grossly intact. Nose: No nasal discharge. Mouth/Throat: Moist mucous membranes, no redness, no lesions. Neck: Neck supple, non-tender, no cervical lymphadenopathy. Lungs: Clear WYATT to auscultation and percussion, No accessory muscle use. Cardio: Normal S1/S2, regular rhythm, no murmurs, no JVD or carotid bruits. Abdomen: Soft, abdominal tenderness in the Lt and Rt hypochondriac and Rt mid flank region. Abdominal fullness and distended loops of bowel in LLQ. Peristalsis present. BS present. no guarding or rebound. Decreased bowel sounds. No rebound. Extremities: Symmetrical, no significant deformities, no peripheral edema , non-tender, peripheral pulses present. Skin: No rashes, no lesions, warm to touch. Neuro: No focal neurological deficits. Psych: Cooperative, appropriate mood and effect. Objective Labs 04/12/25 04:25 04/12/25 04:25 Labs: Laboratory Results - last 24 hr 04/12/25 04:25 WBC 4.3 RBC 4.41 L Hgb 13.7 Hct 38.9 L MCV 88 MCH 31.1 MCHC 35.2 RDW Std Deviation 43.4 Plt Count 250 D Neut % (Auto) 39 Lymph % (Auto) 41 [place] % (Auto) 14 H Eos % (Auto) 4 Baso % (Auto) 1 Neut # (Auto) 1.7 L Lymph # (Auto) 1.8 [place] # (Auto) 0.6 Eos # (Auto) 0.2 Baso # (Auto) 0.0 Immature Gran # (Auto) 0.06 H Absolute Nucleated RBC 0.00 Immature Gran % 1 H Nucleated RBC % 0 Sodium 138 Potassium 4.1 Chloride 100 Carbon Dioxide 26.9 Anion Gap 11 BUN 10 Creatinine 0.8 Estim Creat Clear Calc 127.5 eGFR > 60 BUN/Creatinine Ratio 13 Glucose 162 H Calculated Osmolality 278 Calcium 9.5 Corrected Calcium 9.5 Phosphorus 4.3 Magnesium 1.3 L Total Bilirubin 0.4 AST 63 H ALT 81 H Alkaline Phosphatase 69 Total Protein 7.3 Albumin 4.4 Globulin 2.9 Albumin/Globulin Ratio 1.5 ABG Interpretation ABG results: 04/06/25 19:35 VBG pH 7.45 VBG pCO2 39 VBG pO2 54 VBG Base Excess 3 Quality Measures Quality Measures VTE prophylaxis Assessment & Plan Assessment Current Active Medications: Generic Name Dose Route Start Last Admin Trade Name Freq PRN Reason Stop Dose Admin Acetaminophen 650 mg 04/07/25 19:44 04/11/25 09:02 Acetaminophen 325 Mg Tablet PO 05/07/25 19:43 650 mg Q6HR PRN Administration Fever > 100.4 or pain Chlordiazepoxide HCl 25 mg 04/09/25 14:15 04/12/25 09:10 Chlordiazepoxide Hcl 25 Mg Capsule PO 04/14/25 14:14 25 mg BID JIM Administration Dextrose 25 ml 04/06/25 21:09 Dextrose 50%-Water Inj 50 Ml Syringe IV 05/06/25 21:08 Q15MIN PRN BG 50-70 responsive npo pt Dextrose 50 ml 04/06/25 21:09 Dextrose 50%-Water Inj 50 Ml Syringe IV 05/06/25 21:08 Q15MIN PRN BG <50 OR BG <70 & pt unresponsive Diazepam 2.5 mg 04/12/25 08:53 Diazepam Inj 5 Mg/Ml Vial 2 Ml IVP X1 PRN Breakthrough Agitation Enoxaparin Sodium 40 mg 04/07/25 09:00 04/12/25 09:11 Enoxaparin Sod Inj 40 Mg/0.4 Ml Syringe SC 04/21/25 08:59 40 mg QDAY JIM Administration Folic Acid 1 mg 04/07/25 09:00 04/12/25 09:10 Folic Acid 1 Mg Tablet PO 05/07/25 08:59 1 mg QDAY JIM Administration Glucagon 1 mg 04/06/25 21:09 Glucagon Inj 1 Mg Vial IM Q15MIN PRN BG <70, and no IV access Hydromorphone HCl 0.5 mg 04/09/25 11:46 04/12/25 00:25 Hydromorphone Inj 2 Mg/Ml Vial IVP 04/14/25 11:45 0.5 mg Q4HR PRN Administration Breakthrough Pain 9-10 Lactated Ringer's 1,000 mls @ 75 mls/hr 04/06/25 21:15 04/12/25 04:06 Lactated Ringers IV 05/06/25 21:14 75 mls/hr .[id number] JIM Administration Magnesium Sulfate 4 gm in 50 mls @ 12.5 mls/hr 04/12/25 11:17 04/12/25 12:31 Magnesium Sulfate Ivpb IV 04/12/25 15:16 12.5 mls/hr X1 ONE Administration Magnesium Sulfate 4 gm in 50 mls @ 12.5 mls/hr 04/12/25 15:20 Magnesium Sulfate Ivpb IV 04/12/25 19:19 X1 ONE Insulin Degludec 8 unit 04/12/25 09:00 04/12/25 09:11 Insulin Degludec 5 Unit/0.05 Ml (Per 5 Units) SC 05/12/25 08:59 8 unit QDAY JIM Administration Insulin Human Lispro 0 unit 04/11/25 08:59 04/12/25 12:32 Insulin Lispro (Admelog) 1 Unit/0.01 Ml Unit SC 05/10/25 16:59 3 unit ACHS JIM Administration Protocol Labetalol HCl 10 mg 04/07/25 07:34 Labetalol Inj 5 Mg/Ml Vial 4 Ml IVP 05/07/25 07:59 Q2HR PRN SBP>180 or DBP>100 Lisinopril 40 mg 04/09/25 11:45 04/12/25 09:10 Lisinopril 20 Mg Tablet PO 05/09/25 11:44 40 mg QDAY JIM Administration Lorazepam 0.25 mg 04/12/25 08:53 Lorazepam 0.5 Mg Tablet PO 04/16/25 21:42 Q4HR PRN CIWA Score 2-6 Lorazepam 0.5 mg 04/12/25 08:53 Lorazepam 0.5 Mg Tablet PO 04/16/25 21:42 Q4HR PRN CIWA SCORE 7-11 Lorazepam 1 mg 04/12/25 08:53 Lorazepam 0.5 Mg Tablet PO 04/16/25 21:42 Q4HR PRN CIWA SCORE 12-15 Melatonin 6 mg 04/08/25 21:00 04/11/25 20:36 Melatonin 3 Mg Tablet PO 05/08/25 20:59 6 mg HS JIM Administration Ondansetron HCl 4 mg 04/07/25 19:45 04/11/25 15:06 Ondansetron Inj 2 Mg/Ml Inj 2 Ml IVP 05/07/25 19:44 4 mg Q6HR PRN Administration NAUSEA OR VOMITING Protocol Sennosides 1 tab 04/12/25 11:30 04/12/25 12:31 Senna Tablet PO 05/12/25 11:29 1 tab QDAY JIM Administration Protocol Thiamine HCl 100 mg 04/07/25 09:00 04/12/25 09:10 Thiamine 100 Mg Tablet PO 05/07/25 08:59 100 mg QDAY JIM Administration Plan Patient is 39 yo M with PMH of AUD comes to ED for abdominal pain, nausea, decreased p.o. intake, and feeling unwell all of which started a few days prior. Patient admitted for alcohol withdrawal and intractable abdominal pain. ? #Alcohol use disorder #Alcohol withdrawal Patient drank 1L vodka before previous admission. Counseled patient on EtOH use. Patient complains of difficulty sleeping, abdominal pain, nausea with vomiting, occipital CASE, dizziness. Tremors appreciated on physical exam. ? Plan: Librium 25 BID in the light of improved CIWA scores. Folate/ Thiamine supplementation AUD counseling Social referral #Steatohepatitis #Diverticulosis #Intractable abdominal pain #Constipation Patient having diffuse abdominal pain, nausea, dry heaving. PE TTP in abdomen LUQ and LLQ, but also RUQ. CTAP revealed major, very extensive fatty infiltration throughout the entire liver. Moderate diverticulosis in the proximal third of the sigmoid colon. Fatty liver on ultrasound. Lipase 62 ? Plan: Lactulose syrup 20g x1 Pain management Zofran IVP 4mg Q6h #Diabetes Mellitus, type II HgbA1c 7.6 -insulin degludec 8u Qday -insulin lispro ACHS SSI ? #Hypertension, stage II #NSTEMI Type II vs I End organ damage confirmed by elevated troponin (0.051 peak, 0.046 last). CK 294 on admission. EKG negative for T wave/ ST changes. Plan: Resumed home lisinopril 40mg Qday #Leukopenia, improved WBC 3.6 on admission. 4.6 today. ? Plan: Continue to trend ? Disposition: Med-Tele DVT prophylaxis: Lovenox 40 qday GI prophylaxis: Diet: regular Lines: PIV CODE STATUS: Full This case was discussed with my attending physician, Dr. Steele, and senior resident, Dr Hilton. Even though this this note was carefully revised there may still be minor errors in middle school counselor due to voice recognition software. Flaquito Kidd, DO PGY I ? Attending Provider Attestation/Addendum I have seen and examined the patient. I was physically present for the ding portions of the services provided including history, physical exam, diagnosis, treatment plans and orders. I agree with assessment and plan of care as documented by residents. Even though this this note was carefully revised there may still be minor errors in middle school counselor due to voice recognition software. Rivera Steele MD
[2025-04-12] MEDS: KETOROLAC INJ 30 MG/ML VIAL IVP (18:05)
[2025-04-12] MEDS: MELATONIN 3 MG TABLET 6 MG PO (20:22)
[2025-04-13] VITALS (8 sets, daily range): BP systolic 122–148; BP diastolic 79–100; PULSE 72–104; RESP 17–24; TEMP 36.1–37.2; O2SAT 96–99
[2025-04-13] MEDS: DiphenhydrAMINE ELIX 25 MG/10 ML UDC 12.5 MG PO (01:44)
[2025-04-13] MEDS: ONDANSETRON INJ 2 MG/ML INJ 2 ML 4 MG IVP ×2 (04:32→20:53)
[2025-04-13 06:08] LABS: Basophils # (Auto) 0.0 Thou/mm3 (0.0-0.2); Basophils % (Auto) 1 % (0-2.5); Eosinophils # (Auto) 0.1 Thou/mm3 (0.0-0.5); Eosinophils % (Auto) 3 % (0-10); Hematocrit 33.4 % (41.0-53.0); Hemoglobin 11.9 g/dL (13.5-16.0); Immature Granulocytes Auto 0.05 Thou/mm3 (0.00-0.00); Lymphocytes # (Auto) 1.5 Thou/mm3 (1.0-4.8); Lymphocytes % (Auto) 34 % (10-50); Mean Corpuscular HGB Conc 35.6 g/dl (31.0-37.0); Mean Corpuscular Hemoglobin 31.6 pg (25.0-35.0); Mean Corpuscular Volume 89 fL (80-100); Monocytes # (Auto) 0.6 Thou/mm3 (0.0-0.8); Monocytes % (Auto) 14 % (0-12); Neutrophils # (Auto) 2.1 Thou/mm3 (1.8-7.7); Neutrophils % (Auto) 47 % (37-80); Nucleated Red Blood Cell # 0.00 Thou/mm3 (0.00-0.00); Nucleated Red Blood Cell % 0 /100 WBC (0); Platelet Count 231 Thou/mm3 (140-440); RDW Standard Deviation 42.4 fL (35.1-43.9); Red Blood Count 3.77 Miln/mm3 (4.50-5.90); White Blood Count 4.4 Thou/mm3 (3.8-10.6)
[2025-04-13 06:34] LABS: Alanine Aminotransferase 74 U/L (10-49); Albumin, Serum 4.0 gm/dL (3.5-5.0); Albumin/Globulin Ratio 1.7 (1.2-2.2); Alkaline Phosphatase 78 U/L (46-116); Anion Gap 9 (7-16); Aspartate Amino Transferase 47 U/L (0-34); BUN/Creatinine Ratio 18 Ratio (12-20); Bilirubin,Total 0.3 mg/dL (0.3-1.2); Blood Urea Nitrogen 14 mg/dL (9-23); Calcium 8.8 mg/dL (8.3-10.6); Calcium (Corrected) 8.8 mg/dL (8.5-10.1); Carbon Dioxide 26.6 mMol/L (20.0-31.0); Chloride 101 mMol/L (98-107); Creatinine (Component) 0.8 mg/dL (0.6-1.3); Estimated Creatinine Clearance 127.5 mL/min (>60); Globulin 2.4 gm/dL (2.3-3.5); Glucose 226 mg/dL (74-106); Magnesium 1.9 mg/dL (1.6-2.6); Osmolality,Calculated 281 (275-295); Phosphorous 3.9 mg/dL (2.4-5.1); Potassium 4.2 mMol/L (3.4-5.1); Sodium 137 mMol/L (136-145); Total Protein 6.4 gm/dL (5.7-8.2); eGFR > 60 See Note
[2025-04-13] MEDS: INSULIN LISPRO (AdmeLOG) 1 UNIT/0.01 ML UNIT SC ×3 (07:25→20:59)
[2025-04-13] MEDS: DIAZEPAM INJ 5 MG/ML VIAL 2 ML 2.5 MG IVP (07:45)
--- NOTE | 2025-04-13 07:51 | PC.NURSE ---
At change of shift patient was agitated and reported pounding headache CIWA scored at 19. MD Santacruz ordered to given PRN ativan NOW AND prn VALIUM now.
[2025-04-13] MEDS: Magnesium Sulfate 4 GM Ivpb 4 GM/50 ML BAG IV (08:47)
[2025-04-13] MEDS: ENOXAPARIN SOD INJ 40 MG/0.4 ML SYRINGE SC (08:48)
[2025-04-13] MEDS: MAGNESIUM OXIDE 400 MG TABLET PO (08:48)
[2025-04-13] MEDS: GABAPENTIN 300 MG CAPSULE PO ×3 (08:48→21:49)
[2025-04-13] MEDS: THIAMINE INJ 500 MG in SODIUM CHLORIDE 0.9% 100 ML 210 MG IV ×3 (08:48→21:49)
[2025-04-13] MEDS: INSULIN DEGLUDEC 5 UNIT/0.05 ML (PER 5 UNITS) 8 UNIT SC (08:49)
[2025-04-13] MEDS: FOLIC ACID 1 MG TABLET PO (08:49)
--- NOTE | 2025-04-13 08:55 | PC.SS ---
Follow up note: On CWAL protocol. Pt will return home upon dc.
--- NOTE | 2025-04-13 12:08 | XR_ITS ---
Examination: Abdomen AP single view Technique: AP portable supine abdomen, single view Exam date and time: April 13, 2025, 1415 hours INDICATIONS: Onset abdominal pain today. FINDINGS: Moderate stool throughout the colon A few loops of air distended small bowel in the upper abdomen No free air No obstruction Ton[place] structures are intact IMPRESSION: Mild small bowel ileus
--- NOTE | 2025-04-13 14:51 | ESPR_ITS ---
<Statement entered by Morgan Hilton MD - 04/13/25 23:16> I saw and examined patient personally and supervised PGY 1 resident, Dr. Rivera with formulating a management plan. I agree with the documentation with the exceptions as listed below. Patient continues to have rated C was between 14?19 overnight for the past 3 days. Discontinued his Librium due to concern for benzo diazepam withdrawal as he has been receiving as needed diazepam lorazepam daily with attempts to wean unsuccessful. Scheduled patient on gabapentin 300 mg p.o. 3 times daily. Also started on high-dose thiamine 500 mg IV 3 times daily for 2 days along with folic acid IV. Repleted with magnesium sulfate 8 g IV x 1. If no improvement will consult neurology. Plan of care discussed with Attending Dr. Cedric Hilton MD PGY 2 Disclaimer: This note was dictated by speech recognition. Minor errors in insurance broker may be present due to voice recognition software. Documentation for date of: 04/13/25 Subjective Subjective Interval history: Patient seen and examined at bedside; overnight had CIWA level at 19. Today CIWA in AM was 14. Exam Vital Signs Temp Pulse Resp BP Pulse Ox O2 Del Method 97.4 F 88 19 134/87 H 97 Room Air 04/13/25 12:00 04/13/25 12:00 04/13/25 12:00 04/13/25 12:00 04/13/25 12:00 04/13/25 12:00 Narrative Exam General: A/O x3, no acute distress, well-nourished, well-developed, overweight Eyes: PERRL, EOMI. Anicteric, vision grossly intact. Ears: No ear pain, no ear discharge, hearing grossly intact. Nose: No nasal discharge. Mouth/Throat: Moist mucous membranes, no redness, no lesions. Neck: Neck supple, non-tender, no cervical lymphadenopathy. Lungs: Clear WYATT to auscultation and percussion, No accessory muscle use. Cardio: Normal S1/S2, regular rhythm, no murmurs, no JVD or carotid bruits. Abdomen: Soft, abdominal tenderness in the Lt and Rt hypochondriac and Rt mid flank region. Peristalsis present. no guarding or rebound. Decreased bowel sounds. No rebound. Extremities: Symmetrical, no significant deformities, no peripheral edema , non-tender, peripheral pulses present. Skin: No rashes, no lesions, warm to touch. Neuro: No focal neurological deficits. Psych: Cooperative, appropriate mood and effect. Objective Labs 04/13/25 05:45 04/13/25 05:45 Labs: Laboratory Results - last 24 hr 04/13/25 05:45 WBC 4.4 RBC 3.77 L Hgb 11.9 L Hct 33.4 L MCV 89 MCH 31.6 MCHC 35.6 RDW Std Deviation 42.4 Plt Count 231 Neut % (Auto) 47 Lymph % (Auto) 34 B[place] % (Auto) 14 H Eos % (Auto) 3 Baso % (Auto) 1 Neut # (Auto) 2.1 Lymph # (Auto) 1.5 Benton # (Auto) 0.6 Eos # (Auto) 0.1 Baso # (Auto) 0.0 Immature Gran # (Auto) 0.05 H Absolute Nucleated RBC 0.00 Immature Gran % 1 H Nucleated RBC % 0 Sodium 137 Potassium 4.2 Chloride 101 Carbon Dioxide 26.6 Anion Gap 9 BUN 14 Creatinine 0.8 Estim Creat Clear Calc 127.5 eGFR > 60 BUN/Creatinine Ratio 18 Glucose 226 H D Calculated Osmolality 281 Calcium 8.8 Corrected Calcium 8.8 Phosphorus 3.9 Magnesium 1.9 Total Bilirubin 0.3 AST 47 H ALT 74 H Alkaline Phosphatase 78 Total Protein 6.4 Albumin 4.0 Globulin 2.4 Albumin/Globulin Ratio 1.7 ABG Interpretation ABG results: 04/06/25 19:35 VBG pH 7.45 VBG pCO2 39 VBG pO2 54 VBG Base Excess 3 Quality Measures Quality Measures VTE prophylaxis Assessment & Plan Assessment Current Active Medications: Generic Name Dose Route Start Last Admin Trade Name Cris PRN Reason Stop Dose Admin Acetaminophen 650 mg 04/12/25 15:17 Acetaminophen 325 Mg Tablet PO 05/07/25 19:43 Q6HR PRN Fever > 100.4 or pain 1-3 Dextrose 25 ml 04/06/25 21:09 Dextrose 50%-Water Inj 50 Ml Syringe IV 05/06/25 21:08 Q15MIN PRN BG 50-70 responsive npo pt Dextrose 50 ml 04/06/25 21:09 Dextrose 50%-Water Inj 50 Ml Syringe IV 05/06/25 21:08 Q15MIN PRN BG <50 OR BG <70 & pt unresponsive Enoxaparin Sodium 40 mg 04/07/25 09:00 04/13/25 08:48 Enoxaparin Sod Inj 40 Mg/0.4 Ml Syringe SC 04/21/25 08:59 40 mg QDAY JIM Administration Folic Acid 1 mg 04/07/25 09:00 04/13/25 08:49 Folic Acid 1 Mg Tablet PO 05/07/25 08:59 1 mg QDAY JIM Administration Gabapentin 300 mg 04/13/25 08:45 04/13/25 14:06 Gabapentin 300 Mg Capsule PO 05/13/25 08:44 300 mg TID JIM Administration Glucagon 1 mg 04/06/25 21:09 Glucagon Inj 1 Mg Vial IM Q15MIN PRN BG <70, and no IV access Thiamine HCl 500 mg/ Sodium 105 mls @ 210 mls/hr 04/13/25 08:00 04/13/25 14:06 Chloride IV 04/20/25 07:59 210 mls/hr TID JIM Administration Insulin Degludec 8 unit 04/12/25 09:00 04/13/25 08:49 Insulin Degludec 5 Unit/0.05 Ml (Per 5 Units) SC 05/12/25 08:59 8 unit QDAY JIM Administration Insulin Human Lispro 0 unit 04/11/25 08:59 04/13/25 11:10 Insulin Lispro (Admelog) 1 Unit/0.01 Ml Unit SC 05/10/25 16:59 Not Given ACHS [facility] Protocol Ketorolac Tromethamine 30 mg 04/12/25 15:17 04/12/25 18:05 Ketorolac Inj 30 Mg/Ml Vial IVP 04/17/25 15:16 30 mg X1 PRN Administration PAIN SCALE 4-10(Mod-Sev Labetalol HCl 10 mg 04/07/25 07:34 Labetalol Inj 5 Mg/Ml Vial 4 Ml IVP 05/07/25 07:59 Q2HR PRN SBP>180 or DBP>100 Lisinopril 40 mg 04/09/25 11:45 04/13/25 08:48 Lisinopril 20 Mg Tablet PO 05/09/25 11:44 40 mg QDAY JIM Administration Lorazepam 0.25 mg 04/12/25 08:53 04/13/25 00:07 Lorazepam 0.5 Mg Tablet PO 04/16/25 21:42 0.25 mg Q4HR PRN Administration CIWA Score 2-6 Lorazepam 0.5 mg 04/12/25 08:53 Lorazepam 0.5 Mg Tablet PO 04/16/25 21:42 Q4HR PRN CIWA SCORE 7-11 Lorazepam 1 mg 04/12/25 08:53 04/13/25 07:46 Lorazepam 0.5 Mg Tablet PO 04/16/25 21:42 1 mg Q4HR PRN Administration CIWA SCORE 12-15 Melatonin 6 mg 04/08/25 21:00 04/12/25 20:22 Melatonin 3 Mg Tablet PO 05/08/25 20:59 6 mg HS JIM Administration Ondansetron HCl 4 mg 04/07/25 19:45 04/13/25 04:32 Ondansetron Inj 2 Mg/Ml Inj 2 Ml IVP 05/07/25 19:44 4 mg Q6HR PRN Administration NAUSEA OR VOMITING Protocol Sennosides 1 tab 04/12/25 11:30 04/13/25 08:49 Senna Tablet PO 05/12/25 11:29 1 tab QDAY JIM Administration Protocol Plan Patient is 39 yo M with PMH of AUD comes to ED for abdominal pain, nausea, decreased p.o. intake, and feeling unwell all of which started a few days prior. Patient admitted for alcohol withdrawal and intractable abdominal pain. ? #Alcohol use disorder #Alcohol withdrawal Patient drank 1L vodka before previous admission. Counseled patient on EtOH use. Patient complains of difficulty sleeping, abdominal pain, nausea with vomiting, occipital CASE, dizziness. Tremors appreciated on physical exam. CIWA 14 today. ? Plan: Gabapentin 300 TID Folate/ Thiamine supplementation AUD counseling Social referral #Steatohepatitis #Diverticulosis #Intractable abdominal pain #Constipation Patient having diffuse abdominal pain, nausea, dry heaving. PE TTP in abdomen LUQ and LLQ, but also RUQ. CTAP revealed major, very extensive fatty infiltration throughout the entire liver. Moderate diverticulosis in the proximal third of the sigmoid colon. Fatty liver on ultrasound. Lipase 62 ? Plan: Senna qday Pain management Zofran IVP 4mg Q6h #Diabetes Mellitus, type II HgbA1c 7.6 -insulin degludec 8u Qday -insulin lispro ACHS SSI ? #Hypertension, stage II #NSTEMI Type II vs I End organ damage confirmed by elevated troponin (0.051 peak, 0.046 last). CK 294 on admission. EKG negative for T wave/ ST changes. Plan: Resumed home lisinopril 40mg Qday #Leukopenia, improved WBC 3.6 on admission. 4.6 today. ? Plan: Continue to trend ? Disposition: Med-Tele DVT prophylaxis: Lovenox 40 qday GI prophylaxis: Diet: regular Lines: PIV CODE STATUS: Full This case was discussed with my attending physician, Dr. Steele, and senior resident, Dr Hilton. Kolton Rivera, PGY1 ? Attending Provider Attestation/Addendum I have seen and examined the patient. I was physically present for the ding portions of the services provided including history, physical exam, diagnosis, treatment plans and orders. I agree with assessment and plan of care as documented by residents. Even though this this note was carefully revised there may still be minor errors in insurance broker due to voice recognition software. Rivera Steele MD
[2025-04-13] MEDS: FOLIC ACID INJ 1 MG/0.2 ML IVP (17:14)
[2025-04-13] MEDS: MELATONIN 3 MG TABLET 6 MG PO (21:49)
[2025-04-14] VITALS (9 sets, daily range): BP systolic 125–160; BP diastolic 83–108; PULSE 59–96; RESP 18–19; TEMP 36.2–36.7; O2SAT 96–99
[2025-04-14] MEDS: hydrALAZINE INJ 20 MG/ML VIAL 10 MG IVP (00:08)
[2025-04-14] MEDS: THIAMINE INJ 500 MG in SODIUM CHLORIDE 0.9% 100 ML 210 MG IV (05:26)
[2025-04-14] MEDS: GABAPENTIN 300 MG CAPSULE PO (05:26)
[2025-04-14] MEDS: ONDANSETRON INJ 2 MG/ML INJ 2 ML 4 MG IVP ×2 (05:37→11:12)
[2025-04-14 06:01] LABS: Basophils # (Auto) 0.1 Thou/mm3 (0.0-0.2); Basophils % (Auto) 1 % (0-2.5); Eosinophils # (Auto) 0.2 Thou/mm3 (0.0-0.5); Eosinophils % (Auto) 4 % (0-10); Hematocrit 37.9 % (41.0-53.0); Hemoglobin 13.4 g/dL (13.5-16.0); Immature Granulocytes Auto 0.05 Thou/mm3 (0.00-0.00); Lymphocytes # (Auto) 2.0 Thou/mm3 (1.0-4.8); Lymphocytes % (Auto) 38 % (10-50); Mean Corpuscular HGB Conc 35.4 g/dl (31.0-37.0); Mean Corpuscular Hemoglobin 31.4 pg (25.0-35.0); Mean Corpuscular Volume 89 fL (80-100); Monocytes # (Auto) 0.7 Thou/mm3 (0.0-0.8); Monocytes % (Auto) 14 % (0-12); Neutrophils # (Auto) 2.1 Thou/mm3 (1.8-7.7); Neutrophils % (Auto) 42 % (37-80); Nucleated Red Blood Cell # 0.00 Thou/mm3 (0.00-0.00); Nucleated Red Blood Cell % 0 /100 WBC (0); Platelet Count 281 Thou/mm3 (140-440); RDW Standard Deviation 43.5 fL (35.1-43.9); Red Blood Count 4.27 Miln/mm3 (4.50-5.90); White Blood Count 5.1 Thou/mm3 (3.8-10.6)
[2025-04-14 06:30] LABS: Alanine Aminotransferase 87 U/L (10-49); Albumin, Serum 4.2 gm/dL (3.5-5.0); Albumin/Globulin Ratio 1.5 (1.2-2.2); Alkaline Phosphatase 69 U/L (46-116); Anion Gap 10 (7-16); Aspartate Amino Transferase 62 U/L (0-34); BUN/Creatinine Ratio 15 Ratio (12-20); Bilirubin,Total 0.4 mg/dL (0.3-1.2); Blood Urea Nitrogen 12 mg/dL (9-23); Calcium 9.4 mg/dL (8.3-10.6); Calcium (Corrected) 9.4 mg/dL (8.5-10.1); Carbon Dioxide 26.9 mMol/L (20.0-31.0); Chloride 102 mMol/L (98-107); Creatinine (Component) 0.8 mg/dL (0.6-1.3); Estimated Creatinine Clearance 127.5 mL/min (>60); Globulin 2.8 gm/dL (2.3-3.5); Glucose 187 mg/dL (74-106); Magnesium 1.6 mg/dL (1.6-2.6); Osmolality,Calculated 282 (275-295); Phosphorous 4.1 mg/dL (2.4-5.1); Potassium 4.4 mMol/L (3.4-5.1); Sodium 139 mMol/L (136-145); Total Protein 7.0 gm/dL (5.7-8.2); eGFR > 60 See Note
[2025-04-14] MEDS: ENOXAPARIN SOD INJ 40 MG/0.4 ML SYRINGE SC (09:37)
[2025-04-14] MEDS: INSULIN DEGLUDEC 5 UNIT/0.05 ML (PER 5 UNITS) 8 UNIT SC (09:38)
[2025-04-14] MEDS: FOLIC ACID INJ 1 MG/0.2 ML IVP (10:37)
[2025-04-14] MEDS: POLYETHYLENE GLYCOL 17 GM PACKET PO (11:12)
--- NOTE | 2025-04-14 15:08 | ESDS_ITS ---
<Statement entered by Morgan Hilton MD - 04/14/25 15:42> I saw and examined patient personally and supervised PGY 1 resident, Dr. Kidd with formulating a management plan. I agree with the documentation as listed below. Plan of care discussed with Attending Dr. Cedric Hilton MD PGY 2 Disclaimer: This note was dictated by speech recognition. Minor errors in whipped topping mixer may be present due to voice recognition software. Planned Discharge Date 04/14/25 DS: Providers Provider Date of admission: 04/06/25 21:11 Primary care physician: Physician No Primary/Family Admitting Provider: Mars Brown MD Attending Provider on Admission: Rivera Steele MD Attending Provider on DC: Flaquito Kidd DO Discharging Provider: Flaquito Kidd DO DS: Diagnosis Problem List Completed Was Problem List Reviewed/Reconciled?: Yes Hospital Course Hospital Course Hospital course: Patient is a 39-year-old male with medical history of alcohol use disorder who came to the ED On 04/07/2025 for evaluation of abdominal pain, nausea, decreased oral intake, and feeling unwell all of which had started a few days before. Patient admitted for alcohol withdrawal and intractable abdominal pain. Patient complained of difficulty sleeping, abdominal pain, nausea with vomiting, occipital headache, and dizziness. Tremors appreciated on physical exam. Patient initiated on CIWA protocol with Librium 25 g twice daily, and later lucy to 3 times daily once LFTs were stable WNL. He also received oral Ativan 0.5, 1, or 2 mg every 4 hours depending on his calculated CIWA score. While headache, dizziness, and tremors improved day by day, abdominal pain and nausea was persistent through the fifth and sixth days. Patient was noted to have distended bowel loops on physical exam but also on KUB. Absent SBO or free air in abdomen. Constipation was treated with lactulose and MiraLAX and senna. Patient was encouraged to ambulate as much as possible. He was weaned off of long acting benzodiazepines, and CIWA remained <6. At the time of discharge, patient is medically stable and deemed safe to return to his/her previous state of living. Admission diagnosis: #Alcohol use disorder #Alcohol withdrawal #Steatohepatitis #Diverticulosis #Intractable abdominal pain #Constipation #Diabetes mellitus, type II #Hypertension, stage II #NSTEMI type II versus type I #Leukopenia, improved Discharge instructions: ? You have been started on gabapentin for your alcohol withdrawal. If you drink alcohol while taking this medication there is a possibility of . Recommend that you completely discontinue drinking alcohol. ? You have been started on a gabapentin taper. Take 300 mg 3 times a day for the next 4 days, followed by 300 mg twice a day, followed by 300 mg once a day, followed by 100 mg once a day and then do not take any more. There is a risk of addiction/dependence if you continue to take this medication. Do not drive or operate heavy machinery. ? We recommend you go to rehab for alcohol cessation. - Follow up with your primary care physician within 1 week of discharge. If you do not have a primary care physician, please follow up with the [facility] Residents clinic ([phone]) ? If you experience any new, worsening or persistent symptoms either call your primary doctor, or dial 911 or present to the emergency department. This case was discussed with my attending physician, Dr. Steele, and senior resident, Dr Hilton. Even though this this note was carefully revised there may still be minor errors in whipped topping mixer due to voice recognition software. Flaquito Kidd DO PGY I Time Spent with Patient Time attestation: Total time spent providing and/or coordinating discharge services: 35 minutes Time spent: Greater than 30 minutes Exam Vital Signs Temp Pulse Resp BP Pulse Ox O2 Del Method 98.0 F 70 18 157/108 H 99 Room Air 04/14/25 12:04/14/25 12:04/14/25 12:04/14/25 12:04/14/25 12:04/14/25 12:00 Narrative Exam General: A/O x3, no acute distress, well-nourished, well-developed, overweight Eyes: PERRL, EOMI. Anicteric, vision grossly intact. Ears: No ear pain, no ear discharge, hearing grossly intact. Nose: No nasal discharge. Mouth/Throat: Moist mucous membranes, no redness, no lesions. Neck: Neck supple, non-tender, no cervical lymphadenopathy. Lungs: Clear WYATT to auscultation and percussion, No accessory muscle use. Cardio: Normal S1/S2, regular rhythm, no murmurs, no JVD or carotid bruits. Abdomen: Soft, abdominal tenderness in the Lt and Rt hypochondriac and Rt mid flank region. Peristalsis present. no guarding or rebound. Decreased bowel sounds. No rebound. Extremities: Symmetrical, no significant deformities, no peripheral edema , non-tender, peripheral pulses present. Skin: No rashes, no lesions, warm to touch. Neuro: No focal neurological deficits. Psych: Cooperative, appropriate mood and effect. Discharge Plan Plan Patient Disposition: HOME (Self Care) Patient condition on transfer: Stable and Benefits outweigh risks Care Plan Goals: ? You have been started on gabapentin for your alcohol withdrawal. If you drink alcohol while taking this medication there is a possibility of . Recommend that you completely discontinue drinking alcohol. ? You have been started on a gabapentin taper. Take 300 mg 3 times a day for the next 4 days, followed by 300 mg twice a day, followed by 300 mg once a day, followed by 100 mg once a day and then do not take any more. There is a risk of addiction/dependence if you continue to take this medication. Do not drive or operate heavy machinery. ? We recommend you go to rehab for alcohol cessation. - Follow up with your primary care physician within 1 week of discharge. If you do not have a primary care physician, please follow up with the [facility] Residents clinic ([phone]) ? If you experience any new, worsening or persistent symptoms either call your primary doctor, or dial 911 or present to the emergency department. Prescriptions/Referrals Prescriptions/Med Rec: New melatonin 3 mg Tablet 6 mg PO HS 14 Days Qty: 28 0RF thiamine mononitrate (vit B1) 100 mg Tablet 100 mg PO QDAY 30 Days Qty: 30 0RF gabapentin 300 mg capsule 300 mg PO TID 4 Days Qty: 12 0RF gabapentin 300 mg capsule 300 mg PO BID 4 Days Qty: 8 0RF Rx Instructions: To start on 04/18. gabapentin 300 mg capsule 300 mg PO QDAY 4 Days Qty: 4 0RF Rx Instructions: To start on 04/22 gabapentin 100 mg capsule 100 mg PO QDAY 4 Days Qty: 4 0RF Rx Instructions: To start on 04/22 senna 8.6 mg capsule 8.6 mg PO QDAY 30 Days Qty: 30 0RF magnesium 200 mg tablet 200 mg PO QDAY 14 Days Qty: 14 0RF Continued metformin 850 mg tablet 850 mg PO QDAY lisinopril 40 mg tablet 40 mg PO QDAY omeprazole 40 mg capsule,delayed release(DR/EC) 40 mg PO QDAY Referrals: [facility] [Outside] No Primary/Family,Physician [Primary Care Provider] Patient/Caregiver Discharge Instructions Education Materials: Alcoholism Resources, Alcoholism: Getting Help, Alcohol Addiction, Alcohol Withdrawal: What to Expect, Addiction Ask These Questions, Addiction: Getting Help, Addiction: Your Treatment Options, Addiction Recovery Counseling Print Language: Turkmen Stand Alone Forms: [employer] Award Info., Patient Portal Info Letter Discharge Order Discharge Orders: Discharge (Routine); Ordered 04/14/25 Ordered By: Morgan Hilton Quality Discharge Quality Measures VTE prophylaxis MD Attestestation MD Attestation I have seen and examined the patient. I was physically present for the ding portions of the services provided including history, physical exam, diagnosis, treatment plans and orders. I agree with assessment and plan of care as documented by residents. Even though this this note was carefully revised there may still be minor errors in whipped topping mixer due to voice recognition software. Rivera Steele MD
== END 2025-04-14 12:33 | disposition home or self-care (01) | DRG 775 ==
LOC: SERX 21:28 → SERHOLD 21:59 → S3SX 04-07 00:15
PROVIDERS: Family Medicine; Admitting Provider Student in an Organized Health Care Education/Training Program; Emergency Provider Emergency Medicine; Visit Provider Student in an Organized Health Care Education/Training Program
DX: F10.239 Alcohol dependence with withdrawal, unspecified (principal); F10.229 Alcohol dependence with intoxication, unspecified; I10 Essential (primary) hypertension; K57.30 Diverticulosis of large intestine without perforation or abscess without bleeding; I21.4 Non-ST elevation (NSTEMI) myocardial infarction; I16.1 Hypertensive emergency; D72.819 Decreased white blood cell count, unspecified; Y90.6 Blood alcohol level of 120-199 mg/100 ml; Z79.4 Long term (current) use of insulin; Z79.899 Other long term (current) drug therapy; E11.65 Type 2 diabetes mellitus with hyperglycemia; K59.00 Constipation, unspecified; K75.81 Nonalcoholic steatohepatitis (NASH); E83.42 Hypomagnesemia
CPT/HCPCS: 36415; 74018; 74176; 76705; 80053; 80307; 80320; 81001; 82010; 82140; 82150; 82248; 82550; 82803; 83036; 83605; 83690; 83735; 83880; 84100; 84443; 84484; 85025; 85610; 85730; 93005; 93225; 96361; 96365; 96366; 96375; 96376; 99285; J0360; J1171; J1650; J1815; J1885; J2060; J2270; J2405; J2470; J3360; J3411; J3475; J3480; J3490; J7030; J7050; J7120; A9270; G0480